=== PATIENT | male | born 1965 | race Caucasian/White ===

== ENCOUNTER → 2016-10-12 | Outpatient (CLI) | payer OTHER ==
[~2016-10-12] MED LIST: /ESOM40CA PO; ADV100INH INH; ADVAIR INH; ALBU17IN2 INH; ATOR1TAB21 PO; AUGM875T27 PO; CHLO125TA PO; COLA100C2 OR; COMBAER6 INH; CORE6.25 PO; FISH1000 PO; FLECTOR1.3 TOP; LEVA31IN INH; LISI20TA5 PO; MULTCAP11 PO; NICO7DIS4 TD; PRED20TA PO; PRIL20CA PO; PROA1AER INH; TUDO400A IN; VIBR100C PO; XOPE1.252 INH; nasonex; oxygen
--- NOTE | 2016-10-12 15:29 | REP ---
Chest two views HISTORY: Shortness of breath Comparison: 07/30/2014 The lungs are clear. The heart is normal in size. The pulmonary vasculature is normal in appearance. The bony structure is intact. IMPRESSION: No acute disease. Signed by Max Santo MD 10/12/2016 03:20 P
== END ==
LOC: M LRY 15:00
PROVIDERS: ATTEND Nurse Practitioner Family
DX: R06.02 Shortness of breath (principal)

== ENCOUNTER → 2017-03-19 | Outpatient (REF) | payer OTHER ==
[~2017-03-19] MED LIST changes: -AUGM875T27 PO; +AUGM875T28 PO; +BREO1INH3 INH; +IBUP80TA PO; +INCR1INH IN; -PROA1AER INH; +PROAAER10 INH; +ZOFR4TAB3 PO
[2017-03-19 18:43] LABS: MEAN CORPUSCULAR HEMOGLOBIN 30.5 pg (27.0-33.0); MEAN CORPUSCULAR VOLUME 89.8 fl (80.0-96.0); RED CELL DISTRIBUTION WIDTH 12.9 % (11.5-14.5); WHITE BLOOD COUNT 9.5 K/mm3 (4.0-10.0)
[2017-03-19 18:56] LABS: ALBUMIN 4.1 GM/DL (3.2-5.2); ALBUMIN/GLOBULIN RATIO 1.52 (1.00-1.93); ALKALINE PHOSPHATASE 100 U/L (45-117); ALT/SGPT 67 U/L (12-78); ANION GAP 5 MEQ/L (8-16); AST/SGOT 24 U/L (15-37); BILIRUBIN,TOTAL 0.4 MG/DL (0.2-1.0); BLOOD UREA NITROGEN 11 MG/DL (7-18); CALCIUM LEVEL 9.2 MG/DL (8.5-10.1); CARBON DIOXIDE LEVEL 35 MEQ/L (21-32); CHLORIDE LEVEL 103 MEQ/L (98-107); CHOLESTEROL LEVEL 130 MG/DL (<200); CREATININE FOR GFR 0.93 MG/DL (0.70-1.30); GLOMERULAR FILTRATION RATE > 60.0 (>56); GLUCOSE, FASTING 125 MG/DL (70-105); SODIUM LEVEL 143 MEQ/L (136-145); TOTAL PROTEIN 6.8 GM/DL (6.4-8.2); TRIGLYCERIDES LEVEL 311 MG/DL (<150)
== END ==
LOC: M SFHCLERA 09:40
PROVIDERS: ATTEND Physician Assistant
DX: I10 Essential (primary) hypertension (principal); R73.09 Other abnormal glucose; E78.2 Mixed hyperlipidemia

== ENCOUNTER 2017-05-30 16:04 | Emergency (ER) | payer OTHER ==
[~2017-05-30] VITALS: Ht 182.9 cm; Wt 122.7 kg
[~2017-05-30 16:04] MED LIST changes: -BREO1INH3 INH; -IBUP80TA PO; -INCR1INH IN; -ZOFR4TAB3 PO
[2017-05-30] MEDS ORDERED: BREO1INH3 INH (16:16)
[2017-05-30] MEDS ORDERED: INCR1INH IN (16:16)
--- NOTE | 2017-05-30 17:06 | REP ---
CT Head without contrast HISTORY: Trauma COMPARISON: None There is no intraparenchymal hemorrhage, acute infarct, mass or midline shift. The ventricular system is normal in appearance. There is no extra cerebral collection. There is no fracture. The visualized sinuses are clear. A subgaleal hematoma is present overlying the right frontal bone. Small amount of subcutaneous air is present. IMPRESSION: There is no intracranial lesion. Signed by Max Santo MD 05/30/2017 04:57 P
[2017-05-30] MEDS ORDERED: ACETAMINOPHEN 325 MG TAB PO ONE (17:15)
[2017-05-30] MEDS ORDERED: ONDANSETRON 4 MG ORAL DISINTEGRATING TAB (S0181) PO ONE (17:15)
[2017-05-30] MEDS ORDERED: IBUPROFEN 800 MG TAB PO ONE (17:15)
[2017-05-30] MEDS ORDERED: IBUP80TA PO (17:22)
[2017-05-30] MEDS ORDERED: ZOFR4TAB3 PO (17:22)
[2017-05-30 17:29] VITALS: BP 153/95
== END 2017-05-30 17:30 | disposition home or self-care (01) ==
LOC: M ED 16:04
DX: S00.83XA Contusion of other part of head, initial encounter (principal); S09.90XA Unspecified injury of head, initial encounter; W22.8XXA Striking against or struck by other objects, initial encounter; Y92.59 Other trade areas as the place of occurrence of the external cause; Y93.H3 Activity, building and construction; Y99.0 Civilian activity done for income or pay; Z79.51 Long term (current) use of inhaled steroids; Z79.899 Other long term (current) drug therapy; Z87.891 Personal history of nicotine dependence

== ENCOUNTER → 2017-09-17 | Outpatient (CLI) | payer OTHER | LOC: M LRY 12:06 | DX: R06.02 Shortness of breath (principal) | CPT/HCPCS: 71046 ==

== ENCOUNTER → 2017-09-19 | Outpatient (REF) | payer OTHER ==
[2017-09-19 18:33] LABS: ALBUMIN 4.4 GM/DL (3.2-5.2); ALBUMIN/GLOBULIN RATIO 1.33 (1.00-1.93); ALKALINE PHOSPHATASE 116 U/L (45-117); ALT/SGPT 51 U/L (12-78); ANION GAP 6 MEQ/L (8-16); AST/SGOT 10 U/L (7-37); BILIRUBIN,TOTAL 0.3 MG/DL (0.2-1.0); BLOOD UREA NITROGEN 19 MG/DL (7-18); CALCIUM LEVEL 9.4 MG/DL (8.5-10.1); CARBON DIOXIDE LEVEL 31 MEQ/L (21-32); CHLORIDE LEVEL 103 MEQ/L (98-107); CHOLESTEROL LEVEL 157 MG/DL (<200); CHOLESTEROL RISK RATIO 4.617 (<5); CREATININE FOR GFR 0.95 MG/DL (0.70-1.30); GLOMERULAR FILTRATION RATE > 60.0 (>56); GLUCOSE, FASTING 171 MG/DL (70-100); HDL CHOLESTEROL 34 MG/DL (>40); LDL CHOLESTEROL 76.2 MG/DL (<100); NON-HDL-C 123 MG/DL; POTASSIUM SERUM 4.6 MEQ/L (3.5-5.1); SODIUM LEVEL 140 MEQ/L (136-145); TOTAL PROTEIN 7.7 GM/DL (6.4-8.2); TRIGLYCERIDES LEVEL 234 MG/DL (<150)
[2017-09-19 19:57] LABS: ESTIMATED AVERAGE GLUCOSE 140 MG/DL (60-110); HEMOGLOBIN A1c 6.5 %
== END ==
LOC: M SFHCLERA 09:53
DX: I10 Essential (primary) hypertension (principal); R73.09 Other abnormal glucose; E78.2 Mixed hyperlipidemia
CPT/HCPCS: 83036

== ENCOUNTER → 2017-12-01 | Outpatient (CLI) | payer OTHER | LOC: M PAIN 11:15 | DX: M46.92 Unspecified inflammatory spondylopathy, cervical region (principal); G44.309 Post-traumatic headache, unspecified, not intractable; M79.1 Myalgia; J44.9 Chronic obstructive pulmonary disease, unspecified; K21.9 Gastro-esophageal reflux disease without esophagitis; I10 Essential (primary) hypertension; E78.5 Hyperlipidemia, unspecified; M19.011 Primary osteoarthritis, right shoulder; M19.012 Primary osteoarthritis, left shoulder; J30.2 Other seasonal allergic rhinitis; Z79.51 Long term (current) use of inhaled steroids; Z79.899 Other long term (current) drug therapy; Z87.891 Personal history of nicotine dependence | CPT/HCPCS: G0463 ==

== ENCOUNTER → 2018-01-12 | Outpatient (CLI) | payer OTHER | LOC: M LRY 14:35 | DX: R10.9 Unspecified abdominal pain (principal) | CPT/HCPCS: 74021 ==

== ENCOUNTER → 2018-01-24 | Outpatient (CLI) | payer OTHER | LOC: M PAIN 11:45 | DX: M46.92 Unspecified inflammatory spondylopathy, cervical region (principal); F07.81 Postconcussional syndrome; M79.1 Myalgia; G44.309 Post-traumatic headache, unspecified, not intractable; M54.12 Radiculopathy, cervical region; J44.9 Chronic obstructive pulmonary disease, unspecified; I10 Essential (primary) hypertension; K21.9 Gastro-esophageal reflux disease without esophagitis; E78.5 Hyperlipidemia, unspecified; Z79.899 Other long term (current) drug therapy; Z87.891 Personal history of nicotine dependence; J30.2 Other seasonal allergic rhinitis | CPT/HCPCS: G0463 ==

== ENCOUNTER → 2018-02-27 | Outpatient (CLI) | payer OTHER | LOC: M PAIN 10:30 | DX: M46.92 Unspecified inflammatory spondylopathy, cervical region (principal); F07.81 Postconcussional syndrome; M79.1 Myalgia; G44.309 Post-traumatic headache, unspecified, not intractable; M54.12 Radiculopathy, cervical region; J44.9 Chronic obstructive pulmonary disease, unspecified; K21.9 Gastro-esophageal reflux disease without esophagitis; I10 Essential (primary) hypertension; E78.5 Hyperlipidemia, unspecified; J30.2 Other seasonal allergic rhinitis; M19.011 Primary osteoarthritis, right shoulder; M19.012 Primary osteoarthritis, left shoulder; Z79.51 Long term (current) use of inhaled steroids; Z87.891 Personal history of nicotine dependence; Z79.899 Other long term (current) drug therapy | CPT/HCPCS: G0463 ==

== ENCOUNTER → 2018-02-28 | Outpatient (REF) | payer OTHER ==
[2018-02-28 12:00] LABS: ESTIMATED AVERAGE GLUCOSE 217 MG/DL (60-110); HEMOGLOBIN A1c 9.2 %
[2018-02-28 13:15] LABS: ALKALINE PHOSPHATASE 202 U/L (45-117); AST/SGOT 47 U/L (7-37); BILIRUBIN,TOTAL 0.5 MG/DL (0.2-1.0); BLOOD UREA NITROGEN 12 MG/DL (7-18); CALCIUM LEVEL 9.3 MG/DL (8.5-10.1); CARBON DIOXIDE LEVEL 31 MEQ/L (21-32); CHLORIDE LEVEL 96 MEQ/L (98-107); CHOLESTEROL LEVEL 250 MG/DL (<200); CREATININE FOR GFR 1.01 MG/DL (0.70-1.30); GLUCOSE, FASTING 334 MG/DL (70-100); HDL CHOLESTEROL 26 MG/DL (>40); POTASSIUM SERUM 4.9 MEQ/L (3.5-5.1); SODIUM LEVEL 135 MEQ/L (136-145); TOTAL PROTEIN 7.7 GM/DL (6.4-8.2); TRIGLYCERIDES LEVEL 2066 MG/DL (<150)
[2018-02-28 13:27] LABS: ALT/SGPT 115 U/L (12-78)
[2018-02-28 13:29] LABS: ANION GAP 8 MEQ/L (8-16)
[2018-02-28 13:31] LABS: ALBUMIN/GLOBULIN RATIO 1.18 (1.00-1.93)
== END ==
LOC: M SFHCLERA 09:25
DX: E78.2 Mixed hyperlipidemia (principal); R73.09 Other abnormal glucose

== ENCOUNTER → 2018-04-02 | Outpatient (CLI) | payer OTHER | LOC: M PAIN 11:00 | DX: M46.92 Unspecified inflammatory spondylopathy, cervical region (principal); F07.81 Postconcussional syndrome; M79.1 Myalgia; G44.309 Post-traumatic headache, unspecified, not intractable; M54.12 Radiculopathy, cervical region; J45.909 Unspecified asthma, uncomplicated; J44.9 Chronic obstructive pulmonary disease, unspecified; K21.9 Gastro-esophageal reflux disease without esophagitis; I10 Essential (primary) hypertension; E78.5 Hyperlipidemia, unspecified; M19.011 Primary osteoarthritis, right shoulder; M19.012 Primary osteoarthritis, left shoulder; F17.220 Nicotine dependence, chewing tobacco, uncomplicated; J31.0 Chronic rhinitis; Z99.81 Dependence on supplemental oxygen; Z79.899 Other long term (current) drug therapy | CPT/HCPCS: G0463 ==

== ENCOUNTER → 2018-04-26 | Outpatient (CLI) | payer OTHER | LOC: M PAIN 15:15 | DX: M54.2 Cervicalgia (principal); M47.812 Spondylosis without myelopathy or radiculopathy, cervical region; M79.1 Myalgia; J44.9 Chronic obstructive pulmonary disease, unspecified; K21.9 Gastro-esophageal reflux disease without esophagitis; E11.65 Type 2 diabetes mellitus with hyperglycemia; I10 Essential (primary) hypertension; E78.5 Hyperlipidemia, unspecified; M19.011 Primary osteoarthritis, right shoulder; M19.012 Primary osteoarthritis, left shoulder; Z79.51 Long term (current) use of inhaled steroids; Z79.84 Long term (current) use of oral hypoglycemic drugs; Z79.899 Other long term (current) drug therapy; Z87.891 Personal history of nicotine dependence | CPT/HCPCS: G0463 ==

== ENCOUNTER 2018-06-04 09:09 | Day surgery (SDC) | payer OTHER ==
[2018-06-04] MEDS: NS 1,000 ML IV (06:00)
[2018-06-04] MEDS ORDERED: LIDOCAINE 2% INJ 100 MG/5 ML SDV (FOR ANES.) As Ordered (11:37)
[2018-06-04] MEDS ORDERED: PROPOFOL 500 MG/50 ML VIAL As Ordered (11:37)
== END 2018-06-04 11:49 | disposition home or self-care (01) ==
LOC: M OPP 11:49
DX: Z12.11 Encounter for screening for malignant neoplasm of colon (principal); K57.30 Diverticulosis of large intestine without perforation or abscess without bleeding; K64.8 Other hemorrhoids; I10 Essential (primary) hypertension; E78.5 Hyperlipidemia, unspecified; E11.9 Type 2 diabetes mellitus without complications; Z87.19 Personal history of other diseases of the digestive system; K21.9 Gastro-esophageal reflux disease without esophagitis; R12 Heartburn; Z87.828 Personal history of other (healed) physical injury and trauma; G43.909 Migraine, unspecified, not intractable, without status migrainosus; J45.909 Unspecified asthma, uncomplicated; J44.9 Chronic obstructive pulmonary disease, unspecified; G47.30 Sleep apnea, unspecified; Z87.891 Personal history of nicotine dependence; Z79.84 Long term (current) use of oral hypoglycemic drugs; Z79.899 Other long term (current) drug therapy; Z80.9 Family history of malignant neoplasm, unspecified
CPT/HCPCS: G0121

== ENCOUNTER → 2018-06-14 | Outpatient (CLI) | payer OTHER | LOC: M PAIN 15:15 | DX: F07.81 Postconcussional syndrome (principal); M54.12 Radiculopathy, cervical region; M46.92 Unspecified inflammatory spondylopathy, cervical region; M79.18 Myalgia, other site; E11.9 Type 2 diabetes mellitus without complications; J44.9 Chronic obstructive pulmonary disease, unspecified; K21.9 Gastro-esophageal reflux disease without esophagitis; I10 Essential (primary) hypertension; E78.5 Hyperlipidemia, unspecified; M19.011 Primary osteoarthritis, right shoulder; M19.012 Primary osteoarthritis, left shoulder; Z79.84 Long term (current) use of oral hypoglycemic drugs; Z79.51 Long term (current) use of inhaled steroids; Z79.899 Other long term (current) drug therapy; Z87.891 Personal history of nicotine dependence | CPT/HCPCS: G0463 ==

== ENCOUNTER → 2018-06-20 | Outpatient (REF) | payer OTHER ==
[2018-06-20 11:58] LABS: ALBUMIN/GLOBULIN RATIO 1.48 (1.00-1.93); ALKALINE PHOSPHATASE 115 U/L (45-117); ALT/SGPT 61 U/L (12-78); ANION GAP 7 MEQ/L (8-16); AST/SGOT 23 U/L (7-37); BILIRUBIN,TOTAL 0.7 MG/DL (0.2-1.0); BLOOD UREA NITROGEN 20 MG/DL (7-18); CALCIUM LEVEL 9.3 MG/DL (8.5-10.1); CARBON DIOXIDE LEVEL 29 MEQ/L (21-32); CHLORIDE LEVEL 102 MEQ/L (98-107); CHOLESTEROL LEVEL 136 MG/DL (<200); CHOLESTEROL RISK RATIO 4.857 (<5); CREATININE FOR GFR 1.01 MG/DL (0.70-1.30); GLOMERULAR FILTRATION RATE > 60.0 (>56); GLUCOSE, FASTING 165 MG/DL (70-100); HDL CHOLESTEROL 28 MG/DL (>40); LDL CHOLESTEROL 43 MG/DL (<100); MAGNESIUM LEVEL 1.9 MG/DL (1.8-2.4); NON-HDL-C 108 MG/DL; POTASSIUM SERUM 4.6 MEQ/L (3.5-5.1); SODIUM LEVEL 138 MEQ/L (136-145); TOTAL PROTEIN 6.7 GM/DL (6.4-8.2); TRIGLYCERIDES LEVEL 326 MG/DL (<150)
[2018-06-20 12:03] LABS: TOTAL 25(OH) VITAMIN D 21.4 NG/ML (30.0-100.0)
[2018-06-20 12:41] LABS: CREATININE, URINE > 400.0 MG/DL; MALB URINE SIEMENS 72.7 MG/L; MAU/CREAT RATIO 18.2 MCG/MG (0.0-30.0)
[2018-06-20 13:06] LABS: ESTIMATED AVERAGE GLUCOSE 160 MG/DL (60-110); HEMOGLOBIN A1c 7.2 %
[2018-06-23 15:23] LABS: VITAMIN B2 (RIBOFLAVIN) 252 ug/L (137-370)
== END ==
LOC: M SFHCLERA 07:27
DX: E11.65 Type 2 diabetes mellitus with hyperglycemia (principal); E78.2 Mixed hyperlipidemia; F07.81 Postconcussional syndrome; G44.309 Post-traumatic headache, unspecified, not intractable; E61.2 Magnesium deficiency

== ENCOUNTER → 2018-07-12 | Outpatient (CLI) | payer OTHER ==
[~2018-07-12] MED LIST changes: -/ESOM40CA PO; -ADV100INH INH; -ADVAIR INH; -ALBU17IN2 INH; -ATOR1TAB21 PO; -AUGM875T28 PO; +BUPIVACAINE HCL 0.25% 30 ML VIAL As Ordered; -CHLO125TA PO; -COLA100C2 OR; -COMBAER6 INH; -CORE6.25 PO; -FISH1000 PO; -FLECTOR1.3 TOP; -LEVA31IN INH; -LISI20TA5 PO; -MULTCAP11 PO; -NICO7DIS4 TD; -PRED20TA PO; -PRIL20CA PO; -PROAAER10 INH; +TRIAMCINOLONE ACETONIDE SUSP 40 MG/ML VIAL (J3301) As Ordered; -TUDO400A IN; -VIBR100C PO; -XOPE1.252 INH; +diazePAM 5 MG TAB As Ordered; -nasonex; +oxyCODONE 5MG TAB As Ordered; -oxygen
== END ==
LOC: M PAIN 08:30
DX: M79.18 Myalgia, other site (principal); M54.2 Cervicalgia; J44.9 Chronic obstructive pulmonary disease, unspecified; K21.9 Gastro-esophageal reflux disease without esophagitis; I10 Essential (primary) hypertension; E11.9 Type 2 diabetes mellitus without complications; E78.5 Hyperlipidemia, unspecified; M19.011 Primary osteoarthritis, right shoulder; M19.012 Primary osteoarthritis, left shoulder; Z79.51 Long term (current) use of inhaled steroids; Z79.899 Other long term (current) drug therapy; Z87.891 Personal history of nicotine dependence
CPT/HCPCS: J3301

== ENCOUNTER → 2018-07-16 | Outpatient (CLI) | payer OTHER | LOC: M PAIN 08:30 | DX: M79.18 Myalgia, other site (principal); M54.2 Cervicalgia; J44.9 Chronic obstructive pulmonary disease, unspecified; E11.9 Type 2 diabetes mellitus without complications; K21.9 Gastro-esophageal reflux disease without esophagitis; I10 Essential (primary) hypertension; E78.5 Hyperlipidemia, unspecified; M19.011 Primary osteoarthritis, right shoulder; M19.012 Primary osteoarthritis, left shoulder; Z79.84 Long term (current) use of oral hypoglycemic drugs; Z79.51 Long term (current) use of inhaled steroids; Z79.899 Other long term (current) drug therapy; Z87.891 Personal history of nicotine dependence | CPT/HCPCS: G0463 ==

== ENCOUNTER → 2018-08-16 | Outpatient (CLI) | payer OTHER ==
[~2018-08-16] MED LIST changes: +/ESOM40CA PO; +ADV100INH INH; +ADVAIR INH; +ALBU17IN2 INH; +ATOR1TAB21 PO; +AUGM875T28 PO; +BREO1INH3 INH; -BUPIVACAINE HCL 0.25% 30 ML VIAL As Ordered; +CARV6.25 PO; +CHLO125TA PO; +COLA100C2 OR; +COMBAER6 INH; +CORE6.25 PO; +FISH1000 PO; +FLECTOR1.3 TOP; +IBUP80TA PO; +INCR1INH IN; +LEVA31IN INH; +LISI-538 PO; +LISI20TA5 PO; +METF500T13 PO; +MULT1TAB10 PO; +MULTCAP11 PO; +NICO7DIS4 TD; +OMEP40CA2 PO; +PRED20TA PO; +PRIL20CA PO; +PROAAER10 INH; +RANI150T PO; -TRIAMCINOLONE ACETONIDE SUSP 40 MG/ML VIAL (J3301) As Ordered; +TUDO400A IN; +VIBR100C PO; +XOPE1.252 INH; +ZOFR4TAB14 PO; -diazePAM 5 MG TAB As Ordered; +nasonex; -oxyCODONE 5MG TAB As Ordered; +oxygen
--- NOTE | 2018-09-01 23:25 | ECWPNPC ---
PATIENT NAME: RUBY LOPEZ : 1965 GENDER: MALE VISIT DATE: 08/16/2018 DISCHARGE DATE: 08/16/18 1237 VISIT LOCKED DATE TIME: PHYSICIAN: ALMA DIXON MD RESOURCE: ALMA DIXON MD REASON FOR APPOINTMENT 1. W/C POST PROC NECK HISTORY OF PRESENT ILLNESS HISTORY OF PRESENT ILLNESS: PAIN THE PATIENT DESCRIBES THE PAIN... 53 YEAR OLD MALE PATIENT WITH A HISTORY OF CHRONIC NECK PAIN. THE PATIENT DESCRIBES THE PAIN ACHING, BURNING, SORE, TENDER, SHARP, STABBING, SHOOTING, AND CONTINUOUS WITH A PAIN SCORE OF 7-10/10 DEPENDING ON PHYSICAL ACTIVITY. 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 THE PATIENT WAS HERE FOR TRIGGER POINT INJECTION ON 07/12/2018 AND REPORTS HAVING SIGNIFICANT RELIEF FOR OVER A MONTH AND SAYS THAT THE PAIN HAS RECENTLY STARTED TO RETURN. THE PATIENT SAYS THAT THE PAIN STARTS IN HIS NECK AND RADIATES DOWN INTO HIS ARMS AND HANDS CAUSING HIM TO HAVE DIFFICULTY RAISING HIS ARMS. THE PATIENT STATES THAT HE HAS DIFFICULTY DOING DAILY ACTIVITIES SUCH LIFTING, WALKING HIS DOG, AND GETTING AROUND DUE TO THIS PAIN. THE PATIENT IS CURRENTLY USING IBUPROFEN AND TIZANIDINE TO AID IN PAIN RELIEF. THE PATIENT SAYS THE IBUPROFEN HAS NOT BEEN HELPING MUCH, BUT THE TIZANIDINE HELPS WITH SEVERE SPASMS. PATIENT DENIES UNEXPLAINABLE WEIGHT LOSS, FEVER, CHILLS, NEW CHANGES ON HIS URINARY OR BOWEL CONTROL. FALL RISK SCREENING: SCREENING :NO FALLS IN THE PAST YEAR CURRENT MEDICATIONS TAKING CARVEDILOL 6.25MG TABLET 1 TABLET ORALLY TWICE A DAY TAKING LISINOPRIL 40 MG TABLET 1 TABLET ORALLY ONCE A DAY TAKING CHLORTHALIDONE 12.5 12.5MG TABLET 1 TAB ORAL TWICE A DAY (CARDIOLOGY) TAKING ATORVASTATIN CALCIUM 40 MG TABLET 1 TABLET ORALLY ONCE A DAY TAKING COMBIVENT RESPIMAT 20-100 MCG/ACT AEROSOL 1 PUFF INHALATION FOUR TIMES DAILY (PULM) TAKING GLUCOPHAGE XR 500 MG TABLET EXTENDED RELEASE 24 HOUR 1 TABLET WITH FOOD ORALLY THREE TIMES A DAY TAKING BREO ELLIPTA 100-25 MCG/INH AEROSOL POWDER BREATH ACTIVATED 1 PUFF INHALATION ONCE A DAY TAKING INCRUSE ELLIPTA 62.5 MCG/INH AEROSOL POWDER BREATH ACTIVATED 1 PUFF INHALATION ONCE A DAY TAKING OXYGEN VIA CPAP NASAL CANNULA NIGHT, NOTES: WEARS AT 2 L TAKING IBUPROFEN 800 MG TABLET 1 TABLET WITH FOOD OR MILK NEEDED ORALLY (MDD 3) FOR PAIN EVERY 6 HOURS NEEDED TAKING OMEPRAZOLE 40MG CAPSULE DELAYED RELEASE 1 CAPSULE ORALLY ONCE A DAY FOR REFLUX TAKING RANITIDINE & DIET MANAGE PROD 150 MG MISCELLANEOUS ORALLY DAILY TAKING MULTIVITAMIN - TABLET CHEWABLE ORALLY DAILY TAKING TIZANIDINE HCL 4 MG TABLET 1 TABLET NEEDED ORALLY FOR SPASMS AND PAIN BEFORE BEDTIME MAY REPEAT IN 5 HRS MDD2 (WORKERS COMP) UNKNOWN XOPENEX 0.63 MG/3ML NEBULIZATION SOLUTION TAKE 3 ML NEB INHALATION 4-5 TIMES DAILY NEEDED FOR COUGH/WHEEZING, NOTES: NONE RECENTLY MEDICATION LIST REVIEWED AND RECONCILED WITH THE PATIENT PAST MEDICAL HISTORY ASTHMA/COPD ESOPHAGEAL REFLUX HTN HYPERLIPIDEMIA CHEST WALL PAIN SHOULDER ARTHRITIS BILATERAL TOBACCO USE (CHEW) CHRONIC RHINITIS RIGHT EYE CORNEAL INJURY DIABETES TYPE II NECK AND SHOULDER PAIN ALLERGIES SEASONAL: NASAL CONGESTION, RED WATERY EYES: ALLERGY SURGICAL HISTORY R KNEE SURGERY COLONOSCOPY (DR. PEREZ - REPEAT 2019) 08/03/2010 RIGHT KNEE ACL 08/20/15 COLONOSCOPY (DR. CLEMENT - REPEAT 2027) 06/04/2018 FAMILY HISTORY FATHER: 63 YRS, STROKE, HTN, DIAGNOSED WITH HYPERTENSION, STROKE MOTHER: ALIVE 75 YRS SIBLINGS: ALIVE 42,50,3 YRS, PNEUMONIA, HTN, DIAGNOSED WITH HYPERTENSION, HEART DISEASE PATERNAL GRAND FATHER: [place], DIAGNOSED WITH HEART DISEASE SOCIAL HISTORY GENERAL: TOBACCO USE ARE YOU A:FORMER SMOKER HOW LONG HAS IT BEEN SINCE YOU LAST SMOKED?1-5 YEARS SMOKING CESSATION INFORMATION GIVEN05/26/2016 LUNG CANCER SCREENING SMOKING STATUS:FORMER SMOKER BMI CARE GOAL FOLLOW-UP ABOVE NORMAL BMI FOLLOW-UPDIETARY MANAGEMENT EDUCATION, GUIDANCE, AND COUNSELING ALCOHOL SCREENING DID YOU HAVE A DRINK CONTAINING ALCOHOL IN THE PAST YEAR?YES POINTS0 INTERPRETATIONNEGATIVE RECREATIONAL DRUG USE DENIES. CAFFEINE 2-5/DAY (COFFEE). SEXUAL HX HAD SEX IN THE LAST 12 MONTHS (VAGINAL, ORAL, OR ANAL)?YES WITHWOMEN ONLY HIV / HEP-C SCREENING HIV TEST OFFERED TO PATIENT:YES DATE OFFERED:09/17/2017 TEST ACCEPTED:NO HEP-C TEST OFFERED TO PATIENT:YES DATE OFFERED:09/17/2017 REASON:PATIENT DECLINED TEST ACCEPTED:NO REASON:PATIENT DECLINED BAPTISM [id number] NONE LANGUAGE GREEK. EDUCATION HS. LEARNING BARRIERS / SPECIAL NEEDS CHANGE FROM LAST VISIT?NO BARRIERS TO LEARNING?NO HEARING IMPAIRED?YES VISION IMPAIRED?YES COGNITIVELY IMPAIRED?NO : [place] BILATERALLY. 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 DIET: TRYING LOW SODIUM, BUT DOES ADD SALT TO FOOD SOME. EXERCISE: WALKS. MARITAL STATUS: . PAIN CLINIC PFS, CLERGY, PUBLIC HEALTH REFERRALS HAS THE PATIENT BEEN EDUCATED REGARDING HIS/HER PLAN OF CARE?YES HAS THE PATIENT BEEN EDUCATED REGARDING PAIN, THE RISK FOR PAIN, THE IMPORTANCE OF EFFECTIVE PAIN MANAGEMENT, AND THE PAIN ASSESSMENT PROCESS?YES ADVANCE DIRECTIVE ADVANCE DIRECTIVE DISCUSSED WITH PATIENT:YES HCP - DOROTA PANIAGUA 07/16/18 BV REVIEWED WITH PATIENT 06/14/18 1440 JSREVIEWED WITH PATIENT 07/16/18 0883 BV. HOSPITALIZATION/MAJOR DIAGNOSTIC PROCEDURE RECTAL BLEEDING - COLONOSCOPY 07/2010 LOWER LEG CELLULITIS 2013 COPD EXACERBATION 07/2014 REVIEW OF SYSTEMS REVIEWED BY: PROVIDER: ALMA DIXON MD . CONSTITUTIONAL: ANY CHANGE IN YOUR MEDICAL CONDITION? NO . CHILLS NO . FEVER NO . INFECTION: DO YOU HAVE NEW INFECTIONS? NO . DO YOU HAVE HISTORY OF MRSA? NO . MUSCULOSKELETAL: ANY NEW PATTERNS OF PAIN OR NUMBNESS? NO . GASTROENTEROLOGY: ANY NEW CHANGE IN BOWEL CONTROL? NO . GENITOURINARY: ANY NEW CHANGE IN BLADDER CONTROL? NO . IS THERE A CHANCE YOU COULD BE ? NO . HEMATOLOGY/LYMPH: DO YOU TAKE ANY BLOOD THINNERS? (FOR EXAMPLE- COUMADIN, PLAVIX, AGGRENOX, PLATEL, PRADAXA, OR XARELTO) NO . WHEN WAS YOUR LAST DOSE? DATE: TIME: . NEUROLOGY: HAVE YOU FALLEN IN THE PAST 6 MONTHS? NO . ANY NEW EXTREMITY NUMBNESS OR WEAKNESS? NO . CARDIOLOGY: DO YOU HAVE A PACEMAKER OR DEFIBRILLATOR? NO . RESPIRATORY: HAVE YOU BEEN SICK IN THE PAST WEEK? NO . FEVER NO . FLU LIKE SYMPTOMS? NO . COUGH NO . INTEGUMENTARY: DO YOU HAVE ANY RASHES OR OPEN SORES? NO . ALLERGIC/IMMUNO: ARE YOU ALLERGIC TO SHELLFISH OR IV DYE? NO . ANY NEW ALLERGIES? NO . PSYCHIATRIC: DO YOU HAVE THOUGHTS OF HURTING YOURSELF OR SOMEONE ELSE? NO . ARE YOU ABUSED, NEGLECTED, OR IN AN UNSAFE ENVIRONMENT? NO . ENDOCRINOLOGY: ARE YOU DIABETIC? YES . OTHER: DO YOU NEED ANY PRESCRIPTIONS? NO . IF YES, PLEASE LIST: ____ . ANY NEW PROBLEMS WITH YOUR MEDICATIONS? NO . WHEN DID YOU LAST EAT? ____ . WHEN DID YOU LAST DRINK? ____ . WHAT DID YOU LAST DRINK? ____ . NAME OF PERSON DRIVING YOU HOME? ____ . DO YOU HAVE ANY OTHER QUESTIONS OR CONCERNS NO . VITAL SIGNS WT 256.5 LBS, HT 72.5 IN, BMI 34.31 INDEX, BP 138/81 MM HG, HR 82 /MIN, RR 18 /MIN, TEMP 97.7 F, OXYGEN SAT % 96%, NA INITIALS SC 11:57. EXAMINATION GENERAL EXAMINATION: PATIENT IS ALERT O X 3 AND COOPERATIVE. TENDERNESS IN THE NECK AREA. PATIENT CAN ABDUCT THE UPPER EXTREMITIES TO BELOW THE SHOULDERS. ARMS ARE WEAK AT EXTENSION AND FLEXION. HAND ON LINE CSR IS REDUCED OVER BOTH SIDES. MRI OF THE CERVICAL SPINE DONE ON 11/02/2017 SHOWS STENOSIS AT C5-C6 AND BULGING DISCS AT MULTIPLE LEVELS. ASSESSMENTS CERVICAL DISC DISORDER WITH RADICULOPATHY OF CERVICAL REGION - M50.10 (PRIMARY) MYALGIA, OTHER SITE - M79.18 TREATMENT CERVICAL DISC DISORDER WITH RADICULOPATHY OF CERVICAL REGION CLINICAL NOTES: WE DISCUSSED SEVERAL ISSUES WITH MR. LOPEZ'S PAIN MANAGEMENT CASE. DUE TO THE CERVICAL RADICULOPATHY, I WOULD LIKE TO MOVE FORWARD WITH A CERVICAL EPIDURAL AT THIS TIME. WE DISCUSSED THE BENEFITS, RISKS, AND ALTERNATIVES OF THE INJECTION AND THE PATIENT WOULD LIKE TO PROCEED. I WOULD ALSO LIKE THE PATIENT TO CONTINUE USING TIZANIDINE FOR SPASMS AND PAIN AND I WOULD LIKE HIM TO TRY ANOTHER NSAID IN PLACE OF THE IBUPROFEN, SO I WILL START HIM ON MOBIC. THE PATIENT WILL FOLLOW UP IN 2 MONTHS. INSTRUCTIONS WERE GIVEN, QUESTIONS WERE ANSWERED, PATIENT REPORTS UNDERSTANDING AND AGREES WITH THE PLAN. I, TATO MATHIS, DOCUMENTED THE ABOVE INFORMATION ACTING A SCRIBE FOR DR. DIXON. I HAVE REVIEWED THE ABOVE DOCUMENT, WRITTEN BY TATO GALVEZIBGloria AND I VERIFY THAT IT IS ACCURATE. OTHERS START MOBIC TABLET, 15 MG, 1 TABLET, ORALLY WITH FOOF, ONCE A DAY, 30 DAY(S), 30, REFILLS 1 PROCEDURES PN WORKMANS' COMP OPINION IN YOUR OPINION, WAS THE INCIDENT THAT THE PATIENT DESCRIBED THE COMPETENT MEDICAL CAUSE OF THIS INJURY/ILLNESS? YES ARE THE PATIENT'S COMPLAINTS CONSISTENT WITH HIS/HER HISTORY OF THE INJURY/ILLNESS? YES IS THE PATIENT'S HISTORY OF THE INJURY/ILLNESS CONSISTENT WITH YOUR OBJECTIVE FINDING? YES WHAT IS THE PERCENTAGE OF TEMPORARY IMPAIRMENT? MILD = 25% IS THE PATIENT WORKING? NO DOCTOR ON SITE: ALMA MARCOS MD PROCEDURE CODES FA211 ESTABILISHED [facility]IENT [facility] FACILITY CHARGE G8427 CURRENT MEDS W/DOSAGES DOCUMENTED G8730 PAIN ASSESS POS TOOL F/U PLAN DOC DISPOSITION & COMMUNICATION FOLLOW UP 2 MONTHS ELECTRONICALLY SIGNED BY ALMA DIXON MD, MD ON 09/01/2018 AT 08:44 PM EST DISCLAIMER : THIS IS A VISIT SUMMARY EXTRACTED FROM THE [employer] CHART. IT IS NOT A COPY OF THE [employer] PROGRESS NOTE. FAB
== END ==
LOC: M PAIN 13:30
PROVIDERS: ATTEND Anesthesiology
DX: M50.10 Cervical disc disorder with radiculopathy, unspecified cervical region (principal); M79.18 Myalgia, other site; J44.9 Chronic obstructive pulmonary disease, unspecified; K21.9 Gastro-esophageal reflux disease without esophagitis; I10 Essential (primary) hypertension; E11.9 Type 2 diabetes mellitus without complications; E78.5 Hyperlipidemia, unspecified; M19.011 Primary osteoarthritis, right shoulder; M19.012 Primary osteoarthritis, left shoulder; Z79.51 Long term (current) use of inhaled steroids; Z79.899 Other long term (current) drug therapy; Z87.891 Personal history of nicotine dependence

== ENCOUNTER → 2018-10-17 | Outpatient (CLI) | payer OTHER ==
[~2018-10-17] MED LIST changes: +ISOVUE-M 300 61% 15ML VIAL (Q9967) As Ordered ONE; +LIDOCAINE 1% SDV INJ 30 ML VIAL As Ordered ONE; +diazePAM 5 MG TAB As Ordered ONE; +methylPREDNISolone SUSP 40 MG/ML (DEPO-medrol) VIAL (J1030) As Ordered ONE; +oxyCODONE 5MG TAB As Ordered ONE
--- NOTE | 2018-10-17 13:22 | REP ---
Partial cervical spine series: Two views. History: Cervical epidural injection for pain. 8 seconds of fluoroscopy time is reported. Findings: A sequence of two last image hold fluoroscopically obtained spot radiographs of the cervicothoracic junction document needle position and contrast injection associated with cervical epidural injection procedure. Electronically Signed by Jonathan Haile MD 10/17/2018 05:03 P
--- NOTE | 2018-10-28 00:02 | ECWPNPC ---
PATIENT NAME: RUBY LOPEZ : 1965 GENDER: MALE VISIT DATE: 10/17/2018 DISCHARGE DATE: 10/17/18 1307 VISIT LOCKED DATE TIME: PHYSICIAN: ALMA DIXON MD RESOURCE: ALMA DIXON MD REASON FOR APPOINTMENT 1. VIOLA HISTORY OF PRESENT ILLNESS HISTORY OF PRESENT ILLNESS: PAIN THE PATIENT DESCRIBES THE PAIN... FALL RISK SCREENING: SCREENING : NO FALLS IN THE PAST YEAR. CURRENT MEDICATIONS TAKING CARVEDILOL 6.25MG TABLET 1 TABLET ORALLY TWICE A DAY, NOTES: 10-16-182099 TAKING LISINOPRIL 40 MG TABLET 1 TABLET ORALLY ONCE A DAY, NOTES: 10-16-182099 TAKING CHLORTHALIDONE 12.5 12.5MG TABLET 1 TAB ORAL TWICE A DAY (CARDIOLOGY), NOTES: 10-16-182099 TAKING ATORVASTATIN CALCIUM 40 MG TABLET 1 TABLET ORALLY ONCE A DAY, NOTES: 10-16-182099 TAKING GLUCOPHAGE XR 500 MG TABLET EXTENDED RELEASE 24 HOUR 1 TABLET WITH FOOD ORALLY THREE TIMES A DAY, NOTES: 10-16-182099 TAKING COMBIVENT RESPIMAT 20-100 MCG/ACT AEROSOL 1 PUFF INHALATION FOUR TIMES DAILY (PULM), NOTES: 2099 TAKING BREO ELLIPTA 100-25 MCG/INH AEROSOL POWDER BREATH ACTIVATED 1 PUFF INHALATION ONCE A DAY, NOTES: 10-16-18899 TAKING XOPENEX 0.63 MG/3ML NEBULIZATION SOLUTION TAKE 3 ML NEB INHALATION 4-5 TIMES DAILY NEEDED FOR COUGH/WHEEZING, NOTES: NOT LATELY TAKING OXYGEN VIA CPAP NASAL CANNULA NIGHT, NOTES: WEARS AT 2 EMERITA EVENING TAKING INCRUSE ELLIPTA 62.5 MCG/INH AEROSOL POWDER BREATH ACTIVATED 1 PUFF INHALATION ONCE A DAY, NOTES: 10/16/182099 TAKING OMEPRAZOLE 40MG CAPSULE DELAYED RELEASE 1 CAPSULE ORALLY ONCE A DAY FOR REFLUX, NOTES: 10/16/182099 TAKING RANITIDINE & DIET MANAGE PROD 150 MG MISCELLANEOUS ORALLY DAILY, NOTES: 10/16/182099 TAKING MULTIVITAMIN - TABLET CHEWABLE ORALLY DAILY, NOTES: 10/16/18899 NOT-TAKING MOBIC 15 MG TABLET 1 TABLET ORALLY WITH FOOD ONCE A DAY, NOTES: HAS BEEN OUT FOR 1 WEEK NOT-TAKING DOXYCYCLINE MONOHYDRATE 100 MG CAPSULE 1 CAPSULE ORALLY BID, NOTES: DONE A WEEK AGO NOT-TAKING TESSALON PERLES 100 MG CAPSULE 1 CAPSULE NEEDED ORALLY THREE TIMES A DAY, NOTES: DONE A WEEK AGO NOT-TAKING PREDNISONE 10 MG TABLET 4 TABS QDAY X 3, 3 TAB QDAY X 3, 2 TABS QDAY X 3, 1 TAB QDAY X 3 DAYS ORALLY DIRECTED, NOTES: DONE A WEEK AGO NOT-TAKING TIZANIDINE HCL 4 MG TABLET 1 TABLET NEEDED ORALLY FOR SPASMS AND PAIN BEFORE BEDTIME MAY REPEAT IN 5 HRS MDD2 (WORKERS COMP), NOTES: (HAS AVAILABLE IF NEEDED) MEDICATION LIST REVIEWED AND RECONCILED WITH THE PATIENT PAST MEDICAL HISTORY ASTHMA/COPD ESOPHAGEAL REFLUX HTN HYPERLIPIDEMIA CHEST WALL PAIN SHOULDER ARTHRITIS BILATERAL TOBACCO USE (CHEW) CHRONIC RHINITIS RIGHT EYE CORNEAL INJURY DIABETES TYPE II NECK AND SHOULDER PAIN ALLERGIES N.K.D.A. SURGICAL HISTORY R KNEE SURGERY COLONOSCOPY (DR. PEREZ - REPEAT 2019) 08/03/2010 RIGHT KNEE ACL 08/20/15 COLONOSCOPY (DR. CLEMENT - REPEAT 2027) 06/04/2018 FAMILY HISTORY FATHER: 63 YRS, STROKE, HTN, DIAGNOSED WITH HYPERTENSION, STROKE MOTHER: ALIVE 75 YRS SIBLINGS: ALIVE 42,50,3 YRS, PNEUMONIA, HTN, DIAGNOSED WITH HYPERTENSION, HEART DISEASE PATERNAL GRAND FATHER: [place], DIAGNOSED WITH HEART DISEASE SOCIAL HISTORY GENERAL: TOBACCO USE ARE YOU A:FORMER SMOKER HOW LONG HAS IT BEEN SINCE YOU LAST SMOKED?1-5 YEARS SMOKING CESSATION INFORMATION GIVEN05/26/2016 LUNG CANCER SCREENING SMOKING STATUS:FORMER SMOKER BMI CARE GOAL FOLLOW-UP ABOVE NORMAL BMI FOLLOW-UPDIETARY MANAGEMENT EDUCATION, GUIDANCE, AND COUNSELING ALCOHOL SCREENING DID YOU HAVE A DRINK CONTAINING ALCOHOL IN THE PAST YEAR?YES POINTS0 INTERPRETATIONNEGATIVE RECREATIONAL DRUG USE DENIES. CAFFEINE 2-5/DAY (COFFEE). SEXUAL HX HAD SEX IN THE LAST 12 MONTHS (VAGINAL, ORAL, OR ANAL)?YES WITHWOMEN ONLY HIV / HEP-C SCREENING HIV TEST OFFERED TO PATIENT:YES DATE OFFERED:09/17/2017 TEST ACCEPTED:NO HEP-C TEST OFFERED TO PATIENT:YES DATE OFFERED:09/17/2017 REASON:PATIENT DECLINED TEST ACCEPTED:NO REASON:PATIENT DECLINED BUDDHIST [id number] NONE LANGUAGE LANGUAGES SPOKEN:UPPER SORBIAN EDUCATION HS. LEARNING BARRIERS / SPECIAL NEEDS CHANGE FROM LAST VISIT?NO BARRIERS TO LEARNING?NO HEARING IMPAIRED?YES : [place] BILATERALLY. HAS HEARING AIDES ON ORDER VISION IMPAIRED?YES :CORRECTIVE LENSES COGNITIVELY IMPAIRED?NO READINESS TO LEARN?YES LEARNING PREFERENCES?NO LEARNING CAPABILITIES PRESENT?YES EMOTIONAL BARRIERS?NO SPECIAL DEVICES?NO SHOP GIRL NEEDED?NO DOMESTIC VIOLENCE NONE. DIET: TRYING LOW SODIUM, BUT DOES ADD SALT TO FOOD SOME. EXERCISE: WALKS. MARITAL STATUS: . PAIN CLINIC PFS, CLERGY, PUBLIC HEALTH REFERRALS HAS THE PATIENT BEEN EDUCATED REGARDING HIS/HER PLAN OF CARE?YES HAS THE PATIENT BEEN EDUCATED REGARDING PAIN, THE RISK FOR PAIN, THE IMPORTANCE OF EFFECTIVE PAIN MANAGEMENT, AND THE PAIN ASSESSMENT PROCESS?YES ADVANCE DIRECTIVE ADVANCE DIRECTIVE DISCUSSED WITH PATIENT:YES HCP - DOROTA PANIAGUA 07/16/18 BV REVIEWED WITH PATIENT 06/14/18 1440 JSREVIEWED WITH PATIENT 07/16/18 0851 BVREVIEWED WITH PATIENT 10/17/18 1156 JS. HOSPITALIZATION/MAJOR DIAGNOSTIC PROCEDURE RECTAL BLEEDING - COLONOSCOPY 07/2010 LOWER LEG CELLULITIS 2013 COPD EXACERBATION 07/2014 REVIEW OF SYSTEMS REVIEWED BY: PROVIDER: . CONSTITUTIONAL: ANY CHANGE IN YOUR MEDICAL CONDITION? NO . CHILLS NO . FEVER NO . INFECTION: DO YOU HAVE NEW INFECTIONS? NO . DO YOU HAVE HISTORY OF MRSA? NO . MUSCULOSKELETAL: ANY NEW PATTERNS OF PAIN OR NUMBNESS? YES INCREASED NUMBNESS IN RIGHT ARM . GASTROENTEROLOGY: ANY NEW CHANGE IN BOWEL CONTROL? NO . GENITOURINARY: ANY NEW CHANGE IN BLADDER CONTROL? NO . IS THERE A CHANCE YOU COULD BE ? NO . HEMATOLOGY/LYMPH: DO YOU TAKE ANY BLOOD THINNERS? (FOR EXAMPLE- COUMADIN, PLAVIX, AGGRENOX, PLATEL, PRADAXA, OR XARELTO) NO . WHEN WAS YOUR LAST DOSE? DATE: TIME: . NEUROLOGY: HAVE YOU FALLEN IN THE PAST 12 MONTHS? NO . ANY NEW EXTREMITY NUMBNESS OR WEAKNESS? YES, INCREASED NUMBNESS TO RIGHT ARM . CARDIOLOGY: DO YOU HAVE A PACEMAKER OR DEFIBRILLATOR? NO . RESPIRATORY: HAVE YOU BEEN SICK IN THE PAST WEEK? NO . FEVER NO . FLU LIKE SYMPTOMS? NO . COUGH NO . INTEGUMENTARY: DO YOU HAVE ANY RASHES OR OPEN SORES? NO . ALLERGIC/IMMUNO: ARE YOU ALLERGIC TO IV DYE? NO . ANY NEW ALLERGIES? NO . PSYCHIATRIC: DO YOU HAVE THOUGHTS OF HURTING YOURSELF OR SOMEONE ELSE? NO . ARE YOU ABUSED, NEGLECTED, OR IN AN UNSAFE ENVIRONMENT? NO . ENDOCRINOLOGY: ARE YOU DIABETIC? YES . OTHER: DO YOU NEED ANY PRESCRIPTIONS? NO . IF YES, PLEASE LIST: ____ . ANY NEW PROBLEMS WITH YOUR MEDICATIONS? NO . WHEN DID YOU LAST EAT? ____10/16/18 2030 . WHEN DID YOU LAST DRINK? ____10/17/18 0800 . WHAT DID YOU LAST DRINK? ____WATER . NAME OF PERSON DRIVING YOU HOME? ____WEJULITA O'TAMIKA . DO YOU HAVE ANY OTHER QUESTIONS OR CONCERNS NO . VITAL SIGNS WT 249.8 LBS, HT 72.5 IN, BMI 33.41 INDEX, BP 143/82 MM HG, HR 83 /MIN, RR 18 /MIN, TEMP 98.4 F, OXYGEN SAT % 96%, BLOOD GLUCOSE LEVEL 130 THIS AM, SAFE IN ENV? (Y/N) YES, NA INITIALS [place] 11:13, REVIEWED BY: SHANNA. ASSESSMENTS CERVICAL DISC DISORDER WITH RADICULOPATHY OF CERVICAL REGION - M50.10 (PRIMARY) TREATMENT CERVICAL DISC DISORDER WITH RADICULOPATHY OF CERVICAL REGION [facility] FLUORO GUIDE SPINE INJECTION (PAIN)[id number] PROCEDURES PN CERVICAL EPIDURAL PRE PROCEDURE DIAGNOSIS CERVICAL DISC DISORDER WITH RADICULOPATHY POST PROCEDURE DIAGNOSIS CERVICAL DISC DISORDER WITH RADICULOPATHY PROCEDURE CERVICAL EPIDURAL STEROID INJECTION UNDER FLUOROSCOPIC GUIDANCE SURGEON DR. ALMA DIXON COAL GRADER NONE ANESTHESIA LOCAL PRE PROCEDURE NOTE THE PATIENT HAS A HISTORY OF CHRONIC CERVICAL PAIN. I EVALUATE THE PATIENT AND REVIEWED THE CHART. I WENT OVER THE RISKS, ALTERNATIVES, AND BENEFITS ASSOCIATED WITH THIS PROCEDURE. THE PATIENT WOULD LIKE TO PROCEED AND GIVE CONSENT TO PERFORMED THE PROCEDURE. THE PATIENT DENIES UNEXPLAINABLE WEIGHT LOSS, FEVER, CHILLS, OR NEW CHANGES IN URINARY OR BOWEL CONTROL DESCRIPTION OF PROCEDURE THE PATIENT WAS BROUGHT TO THE PROCEDURE ROOM AND PLACED IN THE PRONE POSITION. THE CERVICOTHORACIC AREA WAS CLEANED WITH BETADINE SOLUTION AND DRAPED ASEPTICALLY. THE PROCEDURE WAS DONE UNDER STERILE CONDITIONS. I CHECKED LATERALITY AND THE LEVEL WHERE THE PROCEDURE WAS GOING TO BE PERFORMED WITH THE PATIENT AND THE SUPPORTING STAFF AT THE MOMENT OF THE TIME OUT IN THE PROCEDURE ROOM. UNDER FLUOROSCOPIC GUIDANCE, THE TARGET WAS SELECTED AT THE INTERLAMINAR LEVEL OF C7-T1. LIDOCAINE WAS USED TO NUMB THE SKIN AND THE SUBCUTANEOUS TISSUE BELOW IT. EPIDURAL TUOHY NEEDLE 17-GAUGE WAS ADVANCED UNDER FLUOROSCOPIC GUIDANCE AND FOLLOWING PATIENT FEEDBACK UNTIL THE EPIDURAL SPACE WAS REACHED 6 CM DEEP INTO THE SKIN BY THE LOSS OF RESISTANCE TECHNIQUE. ISOVUE M DYE 30%, 0.25 ML, WAS INJECTED SHOWING ADEQUATE SPREAD OF THE DYE. THEN, A SOLUTION OF 3 ML OF NORMAL SALINE WITH DEPO-MEDROL 60 MG WAS INJECTED SLOWLY FOLLOWING PATIENT FEEDBACK. THERE WAS NO EVIDENCE OF BLOOD, PARESTHESIA OR CEREBROSPINAL FLUID DURING THE PROCEDURE. THE PATIENT WAS SENT TO THE RECOVERY ROOM. THE PATIENT WAS MOVING THE EXTREMITIES AND DOING WELL. THERE WAS NO COMPLICATION DURING THE PROCEDURE. FLUOROSCOPY TIME WAS 8 SECONDS POST PROCEDURE NOTE THE PATIENT WILL BE SEEN IN A FOLLOW UP IN THE NEXT FEW WEEKS. INSTRUCTIONS WERE GIVEN, QUESTIONS WERE ANSWERED, AND THE PATIENT EXPRESSED UNDERSTANDING AND AGREES WITH THE PLAN. I, TATO MATHIS, DOCUMENTED THE ABOVE INFORMATION ACTING A SCRIBE FOR DR. DIXON. I HAVE REVIEWED THE ABOVE DOCUMENT, WRITTEN BY TATO GALVEZIBGloria AND I VERIFY THAT IT IS ACCURATE. PN WORKMANS' COMP OPINION IN YOUR OPINION, WAS THE INCIDENT THAT THE PATIENT DESCRIBED THE COMPETENT MEDICAL CAUSE OF THIS INJURY/ILLNESS? YES ARE THE PATIENT'S COMPLAINTS CONSISTENT WITH HIS/HER HISTORY OF THE INJURY/ILLNESS? YES IS THE PATIENT'S HISTORY OF THE INJURY/ILLNESS CONSISTENT WITH YOUR OBJECTIVE FINDING? YES WHAT IS THE PERCENTAGE OF TEMPORARY IMPAIRMENT? MODERATE TO MARKED = 66.7% IS THE PATIENT WORKING? NO DOCTOR ON SITE: ALMA MARCOS MD PROCEDURE CODES 6045F RADXPS IN END [id number] PXD [id number] CERVICAL/THORACIC W/ IMAGING DISPOSITION & COMMUNICATION FOLLOW UP 3 WEEKS ELECTRONICALLY SIGNED BY ALMA DIXON MD, MD ON 10/27/2018 AT 07:54 PM EDT DISCLAIMER : THIS IS A VISIT SUMMARY EXTRACTED FROM THE [employer] CHART. IT IS NOT A COPY OF THE [employer] PROGRESS NOTE. MTDD
== END ==
LOC: M PAIN 11:15
PROVIDERS: ATTEND Anesthesiology
DX: G89.29 Other chronic pain (principal); M50.10 Cervical disc disorder with radiculopathy, unspecified cervical region; J44.9 Chronic obstructive pulmonary disease, unspecified; K21.9 Gastro-esophageal reflux disease without esophagitis; E11.9 Type 2 diabetes mellitus without complications; I10 Essential (primary) hypertension; E78.5 Hyperlipidemia, unspecified; M19.011 Primary osteoarthritis, right shoulder; M19.012 Primary osteoarthritis, left shoulder; Z79.84 Long term (current) use of oral hypoglycemic drugs; Z79.51 Long term (current) use of inhaled steroids; Z79.899 Other long term (current) drug therapy; Z87.891 Personal history of nicotine dependence
CPT/HCPCS: 62321; J1030; Q9967

== ENCOUNTER → 2018-12-03 | Outpatient (CLI) | payer OTHER ==
[~2018-12-03] MED LIST changes: -/ESOM40CA PO; -ISOVUE-M 300 61% 15ML VIAL (Q9967) As Ordered ONE; +LEVA0.3131 INH; -LEVA31IN INH; -LIDOCAINE 1% SDV INJ 30 ML VIAL As Ordered ONE; +NEXI1CAP3 PO; -diazePAM 5 MG TAB As Ordered ONE; -methylPREDNISolone SUSP 40 MG/ML (DEPO-medrol) VIAL (J1030) As Ordered ONE; -oxyCODONE 5MG TAB As Ordered ONE
--- NOTE | 2018-12-17 00:13 | ECWPNPC ---
PATIENT NAME: RUBY LOPEZ : 1965 GENDER: MALE VISIT DATE: 12/03/2018 DISCHARGE DATE: 12/03/18 1314 VISIT LOCKED DATE TIME: PHYSICIAN: ALMA DIXON MD RESOURCE: ALMA DIXON MD REASON FOR APPOINTMENT 1. W/C POST PROC HISTORY OF PRESENT ILLNESS HISTORY OF PRESENT ILLNESS: PAIN THE PATIENT DESCRIBES THE PAIN... 53 YEAR OLD MALE PATIENT WITH A HISTORY OF CHRONIC NECK PAIN. THE PATIENT DESCRIBES THE PAIN ACHING, BURNING, SHARP, STABBING AND CONTINUOUS WITH A PAIN SCORE OF 4-10/10 DEPENDING ON PHYSICAL ACTIVITY. THE PATIENT STATES THE PAIN BEGINS IN HIS NECK AND RADIATES TO HIS RIGHT ARM. THE PATIENT WAS HURT IN A WORK RELATED INJURY ON 05/30/2017 WHILE WORKING A [employer] RO[employer]ER FOR THE [employer] WHEN HE WAS WIDENING A TRAIL WITH A DOZER AND WAS THROWN INTO THE OVERHEAD AND HIT HIS HEAD. THE PATIENT WAS HERE FOR AN EPIDURAL INJECTION ON 10/17/2018 AND STATES HE HAD EXCELLENT PAIN RELIEF AND INCREASED MOBILITY FOR OVER A MONTH. PATIENT SAYS THE PAIN HAS RETURNED OVER THE PAST FEW DAYS. PATIENT HAS TAKEN MOBIC IN THE PAST FOR THE PAIN BUT STATES THAT IT IS NO LONGER HELPS., PATIENT DENIES UNEXPLAINABLE WEIGHT LOSS, FEVER, CHILLS, NEW CHANGES ON HIS URINARY OR BOWEL CONTROL. FALL RISK SCREENING: SCREENING :NO FALLS REPORTED IN THE LAST YEAR CURRENT MEDICATIONS TAKING LISINOPRIL 40 MG TABLET 1 TABLET ORALLY ONCE A DAY TAKING CHLORTHALIDONE 12.5 12.5MG TABLET 1 TAB ORAL TWICE A DAY (CARDIOLOGY) TAKING ATORVASTATIN CALCIUM 40 MG TABLET 1 TABLET ORALLY ONCE A DAY TAKING GLUCOPHAGE XR 500 MG TABLET EXTENDED RELEASE 24 HOUR 1 TABLET WITH FOOD ORALLY THREE TIMES A DAY TAKING COMBIVENT RESPIMAT 20-100 MCG/ACT AEROSOL 1 PUFF INHALATION FOUR TIMES DAILY (PULM) TAKING BREO ELLIPTA 100-25 MCG/INH AEROSOL POWDER BREATH ACTIVATED 1 PUFF INHALATION ONCE A DAY TAKING XOPENEX 0.63 MG/3ML NEBULIZATION SOLUTION TAKE 3 ML NEB INHALATION 4-5 TIMES DAILY NEEDED FOR COUGH/WHEEZING TAKING OXYGEN VIA CPAP NASAL CANNULA NIGHT TAKING INCRUSE ELLIPTA 62.5 MCG/INH AEROSOL POWDER BREATH ACTIVATED 1 PUFF INHALATION ONCE A DAY TAKING OMEPRAZOLE 40MG CAPSULE DELAYED RELEASE 1 CAPSULE ORALLY ONCE A DAY FOR REFLUX TAKING RANITIDINE & DIET MANAGE PROD 150 MG MISCELLANEOUS ORALLY DAILY TAKING MULTIVITAMIN - TABLET CHEWABLE ORALLY DAILY TAKING MOBIC 15 MG TABLET 1 TABLET NEEDED ORALLY WITH FOOD ONCE A DAY FOR PAIN TAKING CARVEDILOL 6.25MG TABLET 1 TABLET ORALLY TWICE A DAY NOT-TAKING DOXYCYCLINE MONOHYDRATE 100 MG CAPSULE 1 CAPSULE ORALLY BID, NOTES: DONE A WEEK AGO NOT-TAKING TESSALON PERLES 100 MG CAPSULE 1 CAPSULE NEEDED ORALLY THREE TIMES A DAY, NOTES: DONE A WEEK AGO NOT-TAKING PREDNISONE 10 MG TABLET 4 TABS QDAY X 3, 3 TAB QDAY X 3, 2 TABS QDAY X 3, 1 TAB QDAY X 3 DAYS ORALLY DIRECTED, NOTES: DONE A WEEK AGO NOT-TAKING TIZANIDINE HCL 4 MG TABLET 1 TABLET NEEDED ORALLY FOR SPASMS AND PAIN BEFORE BEDTIME MAY REPEAT IN 5 HRS MDD2 (WORKERS COMP), NOTES: (HAS AVAILABLE IF NEEDED) MEDICATION LIST REVIEWED AND RECONCILED WITH THE PATIENT PAST MEDICAL HISTORY ASTHMA/COPD ESOPHAGEAL REFLUX HTN HYPERLIPIDEMIA CHEST WALL PAIN SHOULDER ARTHRITIS BILATERAL TOBACCO USE (CHEW) CHRONIC RHINITIS RIGHT EYE CORNEAL INJURY DIABETES TYPE II NECK AND SHOULDER PAIN ALLERGIES N.K.D.A. SURGICAL HISTORY R KNEE SURGERY COLONOSCOPY (DR. PEREZ - REPEAT 2019) 08/03/2010 RIGHT KNEE ACL 08/20/15 COLONOSCOPY (DR. CLEMENT - REPEAT 2027) 06/04/2018 FAMILY HISTORY FATHER: 63 YRS, STROKE, HTN, DIAGNOSED WITH HYPERTENSION, STROKE MOTHER: ALIVE 75 YRS SIBLINGS: ALIVE 42,50,3 YRS, PNEUMONIA, HTN, HEART DISEASE, HYPERTENSION PATERNAL GRAND FATHER: [place], HEART DISEASE SOCIAL HISTORY GENERAL: TOBACCO USE ARE YOU A:FORMER SMOKER HOW LONG HAS IT BEEN SINCE YOU LAST SMOKED?1-5 YEARS SMOKING CESSATION INFORMATION GIVEN05/26/2016 LATEX QUESTIONNAIRE LATEX ALLERGY : HAVE YOU EVER DEVELOPED ANY TYPE OF REACTION AFTER HANDLING LATEX PRODUCTS SUCH RUBBER GLOVES, CONDOMS, DIAPHRAGMS, BALLOONS, SOCKS, OR UNDERWEAR?NO LATEX ALLERGY : HAVE YOU EVER DEVELOPED ANY TYPE OF REACTION DURING OR AFTER DENTAL APPOINTMENT, VAGINAL/RECTAL EXAMINATION, SURGICAL PROCEDURE, OR ANY OTHER EXPOSURE?NO LATEX RISK : HAVE YOU EVER HAD ANY DIFFICULTY BREATHING OR HIVES AFTER EATING OR HANDLING ANY FRUITS, OR VEGETABLES; SUCH KIWI, BANANAS, STONE FRUITS, OR CHESTNUTSNO LATEX RISK : DO YOU HAVE A PREVIOUS PERSONAL HISTORY OF MORE THAN NINE SURGERIES, SPINA BIFIDA, OR REPEATED CATHERTIZATIONS? NO LATEX RISK : ARE YOU FREQUENTLY EXPOSED TO LATEX PRODUCTS IN YOUR OCCUPATION?NO DATE ASKED : 11/13/2018 LUNG CANCER SCREENING SMOKING STATUS:FORMER SMOKER BMI CARE GOAL FOLLOW-UP ABOVE NORMAL BMI FOLLOW-UPDIETARY MANAGEMENT EDUCATION, GUIDANCE, AND COUNSELING ALCOHOL SCREENING DID YOU HAVE A DRINK CONTAINING ALCOHOL IN THE PAST YEAR?YES POINTS0 INTERPRETATIONNEGATIVE RECREATIONAL DRUG USE DENIES. CAFFEINE 2-5/DAY (COFFEE). SEXUAL HX HAD SEX IN THE LAST 12 MONTHS (VAGINAL, ORAL, OR ANAL)?YES WITHWOMEN ONLY HIV / HEP-C SCREENING HIV TEST OFFERED TO PATIENT:YES DATE OFFERED:09/17/2017 TEST ACCEPTED:NO REASON:PATIENT DECLINED HEP-C TEST OFFERED TO PATIENT:YES DATE OFFERED:09/17/2017 TEST ACCEPTED:NO REASON:PATIENT DECLINED BAPTISM BAPTISM NO MORMONISM BELIEFS THAT WOULD IMPACT HEALTH CARE. LANGUAGE LANGUAGES SPOKEN:[employer]UC[employer]. LEARNING BARRIERS / SPECIAL NEEDS CHANGE FROM LAST VISIT?NO BARRIERS TO LEARNING?NO HEARING IMPAIRED?YES : [place] BILATERALLY. HAS HEARING AIDES ON ORDER VISION IMPAIRED?YES :CORRECTIVE LENSES COGNITIVELY IMPAIRED?NO READINESS TO LEARN?YES LEARNING PREFERENCES?NO LEARNING CAPABILITIES PRESENT?YES EMOTIONAL BARRIERS?NO SPECIAL DEVICES?NO LINEN GRADER NEEDED?NO DOMESTIC VIOLENCE NONE. OCCUPATION: OUT OF WORK .. ON WORKERS COMP. DIET: TRYING LOW SODIUM, BUT DOES ADD SALT TO FOOD SOME. EXERCISE: WALKS. MARITAL STATUS: . PAIN CLINIC PFS, CLERGY, PUBLIC HEALTH REFERRALS HAS THE PATIENT BEEN EDUCATED REGARDING HIS/HER PLAN OF CARE?YES HAS THE PATIENT BEEN EDUCATED REGARDING PAIN, THE RISK FOR PAIN, THE IMPORTANCE OF EFFECTIVE PAIN MANAGEMENT, AND THE PAIN ASSESSMENT PROCESS?YES ADVANCE DIRECTIVE ADVANCE DIRECTIVE DISCUSSED WITH PATIENT:YES DECLINED REVIEWED WITH PATIENT 06/14/18 1440 JSREVIEWED WITH PATIENT 07/16/18 0851 BVREVIEWED WITH PATIENT 10/17/18 1156 JS. HOSPITALIZATION/MAJOR DIAGNOSTIC PROCEDURE RECTAL BLEEDING - COLONOSCOPY 07/2010 LOWER LEG CELLULITIS 2013 COPD EXACERBATION 07/2014 REVIEW OF SYSTEMS REVIEWED BY: PROVIDER: ALMA DIXON MD . CONSTITUTIONAL: ANY CHANGE IN YOUR MEDICAL CONDITION? NO . CHILLS NO . FEVER NO . INFECTION: DO YOU HAVE NEW INFECTIONS? NO . DO YOU HAVE HISTORY OF MRSA? NO . MUSCULOSKELETAL: ANY NEW PATTERNS OF PAIN OR NUMBNESS? NO . GASTROENTEROLOGY: ANY NEW CHANGE IN BOWEL CONTROL? NO . GENITOURINARY: ANY NEW CHANGE IN BLADDER CONTROL? NO . IS THERE A CHANCE YOU COULD BE ? NO . HEMATOLOGY/LYMPH: DO YOU TAKE ANY BLOOD THINNERS? (FOR EXAMPLE- COUMADIN, PLAVIX, AGGRENOX, PLATEL, PRADAXA, OR XARELTO) NO . WHEN WAS YOUR LAST DOSE? DATE: TIME: . NEUROLOGY: HAVE YOU FALLEN IN THE PAST 12 MONTHS? NO . ANY NEW EXTREMITY NUMBNESS OR WEAKNESS? YES, BILAT HAND WEAKNESS HAS WORSENED . CARDIOLOGY: DO YOU HAVE A PACEMAKER OR DEFIBRILLATOR? NO . RESPIRATORY: HAVE YOU BEEN SICK IN THE PAST WEEK? NO . FEVER NO . FLU LIKE SYMPTOMS? NO . COUGH NO . INTEGUMENTARY: DO YOU HAVE ANY RASHES OR OPEN SORES? NO . ALLERGIC/IMMUNO: ARE YOU ALLERGIC TO IV DYE? NO . ANY NEW ALLERGIES? NO . PSYCHIATRIC: DO YOU HAVE THOUGHTS OF HURTING YOURSELF OR SOMEONE ELSE? NO . ARE YOU ABUSED, NEGLECTED, OR IN AN UNSAFE ENVIRONMENT? NO . ENDOCRINOLOGY: ARE YOU DIABETIC? NO . OTHER: DO YOU NEED ANY PRESCRIPTIONS? NO . IF YES, PLEASE LIST: ____ . ANY NEW PROBLEMS WITH YOUR MEDICATIONS? NO . WHEN DID YOU LAST EAT? ____ . WHEN DID YOU LAST DRINK? ____ . WHAT DID YOU LAST DRINK? ____ . NAME OF PERSON DRIVING YOU HOME? ____ . DO YOU HAVE ANY OTHER QUESTIONS OR CONCERNS NO . VITAL SIGNS WT 250 LBS, HT 72.5 IN, BMI 33.44 INDEX, BP 147/90 MM HG, HR 66 /MIN, RR 18 /MIN, TEMP 97.7 F, OXYGEN SAT % 97%, NA INITIALS SC 10:59, REVIEWED BY: EM. EXAMINATION GENERAL EXAMINATION: PATIENT IS ALERT O X 3 AND COOPERATIVE. TENDERNESS IN THE NECK AREA. RIGHT ARM LONGER THAN LEFT ARM AT FLEXION. MRI OF THE CERVICAL SPINE DONE ON 11/02/2017 SHOWS STENOSIS AT C5-C6 AND BULGING DISCS AT MULTIPLE LEVELS. ASSESSMENTS CERVICAL DISC DISORDER WITH RADICULOPATHY OF CERVICAL REGION - M50.10 (PRIMARY) MYALGIA, OTHER SITE - M79.18 TREATMENT CERVICAL DISC DISORDER WITH RADICULOPATHY OF CERVICAL REGION CLINICAL NOTES: WE DISCUSSED SEVERAL ISSUES WITH MR. LOPEZ'S PAIN MANAGEMENT CASE. DUE TO THE CERVICAL RADICULOPATHY AND THE RELIEF GIVEN FROM THE CERVICAL EPIDURAL, I WOULD LIKE TO MOVE FORWARD WITH A SECOND CERVICAL INJECTION. THE LAST CERVICAL EPIDURAL PROVIDED GOOD PAIN RELIEF FOR OVER A MONTH. WE DISCUSSED THE BENEFITS, RISKS AND ALTERNATIVES OF THE INJECTION AND THE PATIENT WOULD LIKE TO PROCEED. I WILL START THE PATIENT ON CELEBREX 200 MG, DUE TO PATIENT STATING MOBIC NOT WORKING. WE WILL REQUEST AUTHORIZATION FOR THE VIOLA AND SCHEDULE AFTER AUTHORIZATION OBTAINED. INSTRUCTIONS WERE GIVEN, QUESTIONS WERE ANSWERED, PATIENT REPORTS UNDERSTANDING AND AGREES WITH THE PLAN. I, ROSITA LOPEZ, DOCUMENTED THE ABOVE INFORMATION ACTING A SCRIBE FOR DR. DIXON. I HAVE REVIEWED THE ABOVE DOCUMENT, WRITTEN BY ROSITA LOPEZ SCRIBE AND I VERIFY THAT IT IS ACCURATE.. OTHERS START CELEBREX CAPSULE, 200 MG, 1 CAPSULE WITH FOOD, ORALLY FOR PAIN, ONCE A DAY, 30 DAY(S), 30, REFILLS 1 PROCEDURES PN WORKMANS' COMP OPINION IN YOUR OPINION, WAS THE INCIDENT THAT THE PATIENT DESCRIBED THE COMPETENT MEDICAL CAUSE OF THIS INJURY/ILLNESS? YES ARE THE PATIENT'S COMPLAINTS CONSISTENT WITH HIS/HER HISTORY OF THE INJURY/ILLNESS? YES IS THE PATIENT'S HISTORY OF THE INJURY/ILLNESS CONSISTENT WITH YOUR OBJECTIVE FINDING? YES WHAT IS THE PERCENTAGE OF TEMPORARY IMPAIRMENT? MILD = 25% IS THE PATIENT WORKING? NO DOCTOR ON SITE: ALMA MARCOS MD PREVENTIVE MEDICINE PAIN CLINIC TEACHING: MEDICATIONS NEW MEDICATION CELEBREX WRITTEN INSTRUCTIONS PROVIDED TO PT. PRE-PROCEDURE INSTUCTIONS REVIEWED WITH PT.. PROCEDURE CODES FA211 ESTABILISHED PATIENT THE [facility] FACILITY CHARGE G8427 CURRENT MEDS W/DOSAGES DOCUMENTED G8730 PAIN ASSESS POS TOOL F/U PLAN DOC DISPOSITION & COMMUNICATION ELECTRONICALLY SIGNED BY ALMA DIXON MD, MD ON 12/16/2018 AT 08:41 PM EDT DISCLAIMER : THIS IS A VISIT SUMMARY EXTRACTED FROM THE [employer] CHART. IT IS NOT A COPY OF THE [employer] PROGRESS NOTE. FAB
== END ==
LOC: M PAIN 10:30
PROVIDERS: ATTEND Anesthesiology
DX: M50.10 Cervical disc disorder with radiculopathy, unspecified cervical region (principal); M79.18 Myalgia, other site; J44.9 Chronic obstructive pulmonary disease, unspecified; E11.9 Type 2 diabetes mellitus without complications; I10 Essential (primary) hypertension; K21.9 Gastro-esophageal reflux disease without esophagitis; E78.5 Hyperlipidemia, unspecified; M19.011 Primary osteoarthritis, right shoulder; M19.012 Primary osteoarthritis, left shoulder; Z79.84 Long term (current) use of oral hypoglycemic drugs; Z79.51 Long term (current) use of inhaled steroids; Z79.899 Other long term (current) drug therapy; Z87.891 Personal history of nicotine dependence

== ENCOUNTER → 2018-12-22 | Outpatient (REF) | payer OTHER ==
[2018-12-22 18:26] LABS: ALBUMIN 3.9 GM/DL (3.2-5.2); ALT/SGPT 82 U/L (12-78); BILIRUBIN,TOTAL 0.5 MG/DL (0.2-1.0); BLOOD UREA NITROGEN 21 MG/DL (7-18); CALCIUM LEVEL 9.2 MG/DL (8.5-10.1); CARBON DIOXIDE LEVEL 32 MEQ/L (21-32); CHLORIDE LEVEL 104 MEQ/L (98-107); CHOLESTEROL LEVEL 140 MG/DL (<200); CHOLESTEROL RISK RATIO 4.242 (<5); CREATININE FOR GFR 0.98 MG/DL (0.70-1.30); GLOMERULAR FILTRATION RATE > 60.0 (>56); GLUCOSE, FASTING 206 MG/DL (70-100); HDL CHOLESTEROL 33 MG/DL (>40); LDL CHOLESTEROL 56 MG/DL (<100); NON-HDL-C 107 MG/DL; POTASSIUM SERUM 4.9 MEQ/L (3.5-5.1); SODIUM LEVEL 141 MEQ/L (136-145); TRIGLYCERIDES LEVEL 255 MG/DL (<150)
[2018-12-22 18:30] LABS: BASO # 0.1 10^3/uL (0.0-0.2); BASO % 1.2 % (0.0-1.0); EOS # 0.3 10^3/uL (0.0-0.50); EOS % 3.3 % (0.0-3.0); HEMATOCRIT 46.9 % (42.0-52.0); HEMOGLOBIN 15.2 g/dl (13.5-17.5); LYMPH # 1.8 10^3/uL (1.5-4.5); LYMPH % 22.3 % (24.0-44.0); MEAN CORPUSCULAR HEMOGLOBIN 30.5 pg (27.0-33.0); MEAN CORPUSCULAR HGB CONC 32.4 g/dl (32.0-36.5); MONO # 0.7 10^3/uL (0.0-0.8); MONO % 8.8 % (0.0-5.0); NEUTROPHILS # 5.1 10^3/uL (1.8-7.7); NEUTROPHILS % 63.2 % (36.0-66.0); PLATELET COUNT, AUTOMATED 181 10^3/uL (150-450); RED BLOOD COUNT 4.99 10^6/uL (4.30-6.10); WHITE BLOOD COUNT 8.1 10^3/uL (4.0-10.0)
[2018-12-22 19:11] LABS: HEMOGLOBIN A1c 7.6 %
== END ==
LOC: M SFHCLERA 09:45
PROVIDERS: ATTEND Nurse Practitioner Family
DX: I10 Essential (primary) hypertension (principal); E78.2 Mixed hyperlipidemia; E11.65 Type 2 diabetes mellitus with hyperglycemia

== ENCOUNTER → 2019-05-20 | Outpatient (REF) | payer OTHER ==
[~2019-05-20] MED LIST changes: -OMEP40CA2 PO; +OMEP40CA97 PO
[2019-05-20 13:09] LABS: BASO # 0.1 10^3/uL (0.0-0.2); BASO % 1.3 % (0.0-1.0); EOS # 0.3 10^3/uL (0.0-0.5); EOS % 3.8 % (0.0-3.0); HEMATOCRIT 46.6 % (42.0-52.0); HEMOGLOBIN 15.6 g/dl (13.5-17.5); LYMPH # 1.7 10^3/uL (1.5-5.0); LYMPH % 23.1 % (24.0-44.0); MEAN CORPUSCULAR HEMOGLOBIN 30.6 pg (27.0-33.0); MEAN CORPUSCULAR HGB CONC 33.5 g/dl (32.0-36.5); MEAN CORPUSCULAR VOLUME 91.4 fl (80.0-96.0); MONO # 0.6 10^3/uL (0.0-0.8); MONO % 8.8 % (0.0-5.0); NEUTROPHILS # 4.4 10^3/uL (1.5-8.5); NEUTROPHILS % 61.6 % (36.0-66.0); PLATELET COUNT, AUTOMATED 189 10^3/uL (150-450); WHITE BLOOD COUNT 7.2 10^3/uL (4.0-10.0)
[2019-05-20 13:31] LABS: HEMOGLOBIN A1c 8.3 %
[2019-05-20 13:46] LABS: MALB URINE SIEMENS 61.8 MG/L; MAU/CREAT RATIO 26.6 MCG/MG (0.0-30.0)
[2019-05-20 14:06] LABS: ALBUMIN 3.7 GM/DL (3.2-5.2); ALT/SGPT 144 U/L (12-78); BILIRUBIN,TOTAL 0.7 MG/DL (0.2-1.0); BLOOD UREA NITROGEN 17 MG/DL (7-18); CALCIUM LEVEL 9.1 MG/DL (8.5-10.1); CARBON DIOXIDE LEVEL 31 MEQ/L (21-32); CHLORIDE LEVEL 97 MEQ/L (98-107); CHOLESTEROL LEVEL 224 MG/DL (<200); CREATININE FOR GFR 0.93 MG/DL (0.70-1.30); GLOMERULAR FILTRATION RATE > 60.0 (>56); GLUCOSE, FASTING 263 MG/DL (70-100); HDL CHOLESTEROL 28 MG/DL (>40); NON-HDL-C 196 MG/DL; POTASSIUM SERUM 4.9 MEQ/L (3.5-5.1); SODIUM LEVEL 135 MEQ/L (136-145); TRIGLYCERIDES LEVEL 1485 MG/DL (<150)
== END ==
LOC: M SFHCLERA 07:23
PROVIDERS: ATTEND Nurse Practitioner Family
DX: I10 Essential (primary) hypertension (principal); E11.65 Type 2 diabetes mellitus with hyperglycemia; E78.2 Mixed hyperlipidemia

== ENCOUNTER → 2019-05-30 | Outpatient (CLI) | payer OTHER ==
--- NOTE | 2019-05-31 05:12 | REP ---
Clinical: Elevated liver function tests. Technique: Real time roberts scale ultrasound examination using curved array transducer. Findings: Liver is increased echogenicity with poor through transmission suggesting fatty infiltration. No obvious focal hepatic lesion identified. The pancreas is incompletely evaluated due to interposed bowel gas but visualized portions appear normal. The gallbladder is unremarkable and without gallstones, wall thickening, or pericholecystic fluid. No biliary ductal dilatation is appreciated and the common bile duct measures 4.6 mm diameter. The right kidney is normal in reniform shape without hydronephrosis and measures 13.3 x 5.5 x 5.3 cm. No ascites in the visualized right upper quadrant. Impression: Hepatic steatosis. Electronically Signed by Abimael Blakely MD 05/31/2019 05:03 A
== END ==
LOC: M LRY 08:42
PROVIDERS: ATTEND Nurse Practitioner Family
DX: R74.8 Abnormal levels of other serum enzymes (principal); K76.0 Fatty (change of) liver, not elsewhere classified

== ENCOUNTER → 2019-06-12 | Outpatient (CLI) | payer OTHER ==
--- NOTE | 2019-06-26 03:06 | ECWPNPC ---
PATIENT NAME: RUBY LOPEZ : 1965 GENDER: MALE VISIT DATE: 06/12/2019 DISCHARGE DATE: 06/12/19 1239 VISIT LOCKED DATE TIME: PHYSICIAN: ORVILLE VU RESOURCE: ORVILLE VU REASON FOR APPOINTMENT 1. DISCUSS DENIAL VIOLA HISTORY OF PRESENT ILLNESS HISTORY OF PRESENT ILLNESS: HERE FOR F/U OF PERSISTENT NECK AND RIGHT ARM PAIN.THIS IS A WORK RELATED INJURY WITH DOI-05/30/17.HE REPORTS HE WAS OPERATING A D4 BULLDOZER WHEN HE STOPPED ABRUPTLY AND HIT MIRROR AND STEEL ENCASED LIGHT-ROOF OF DOZER AND HIT RIGHT FOREHEAD/EYE AND HAS SUFFERED NECK PAIN AND RADICULAR SYMPTOMS IN ARMS SINCE.HAS BENEFITED FROM VIOLA DONE HERE IN BOTH DECREASED PAIN AND IMPROVED FUNCTIONALITY FOR AT LEAST 2 MONTHS POST PROCEDURE.RATING PAIN VAS 5-9/10.DESCRIBES PAIN CONTINUOUS,ACHING AND SHARP. PAIN THE PATIENT DESCRIBES THE PAIN... FALL RISK SCREENING: SCREENING :NO FALLS REPORTED IN THE LAST YEAR CURRENT MEDICATIONS TAKING LISINOPRIL 40 MG TABLET 1 TABLET ORALLY ONCE A DAY TAKING CHLORTHALIDONE 12.5 12.5MG TABLET 1 TAB ORAL TWICE A DAY (CARDIOLOGY) TAKING COMBIVENT RESPIMAT 20-100 MCG/ACT AEROSOL 1 PUFF INHALATION FOUR TIMES DAILY (PULM) TAKING INCRUSE ELLIPTA 62.5 MCG/INH AEROSOL POWDER BREATH ACTIVATED 1 PUFF INHALATION ONCE A DAY TAKING XOPENEX 0.63 MG/3ML NEBULIZATION SOLUTION TAKE 3 ML NEB INHALATION 4-5 TIMES DAILY NEEDED FOR COUGH/WHEEZING TAKING OXYGEN VIA CPAP NASAL CANNULA NIGHT TAKING RANITIDINE & DIET MANAGE PROD 150 MG MISCELLANEOUS ORALLY DAILY TAKING CELEBREX 200 MG CAPSULE 1 CAPSULE WITH FOOD ORALLY FOR PAIN ONCE A DAY TAKING MULTIVITAMIN - TABLET CHEWABLE ORALLY DAILY TAKING OMEPRAZOLE 40MG CAPSULE DELAYED RELEASE 1 CAPSULE ORALLY ONCE A DAY FOR REFLUX TAKING GLUCOPHAGE XR 500 MG TABLET EXTENDED RELEASE 24 HOUR 1 TABLET WITH FOOD ORALLY THREE TIMES A DAY TAKING ATORVASTATIN CALCIUM 40 MG TABLET 1 TABLET ORALLY ONCE A DAY TAKING CARVEDILOL 6.25MG TABLET 1 TABLET ORALLY TWICE A DAY TAKING FLUTICASONE-SALMETEROL 232-14 MCG/ACT AEROSOL POWDER BREATH ACTIVATED INHALE 1 PUFF TWICE DAILY INHALATION TAKING CELEXA 20 MG TABLET 1 TABLET ORALLY ONCE A DAY NOT-TAKING BREO ELLIPTA 100-25 MCG/INH AEROSOL POWDER BREATH ACTIVATED 1 PUFF INHALATION ONCE A DAY NOT-TAKING TIZANIDINE HCL 4 MG TABLET 1 TABLET NEEDED ORALLY FOR SPASMS AND PAIN BEFORE BEDTIME MAY REPEAT IN 5 HRS MDD2 (WORKERS COMP), NOTES: (HAS AVAILABLE IF NEEDED) MEDICATION LIST REVIEWED AND RECONCILED WITH THE PATIENT PAST MEDICAL HISTORY ASTHMA/COPD ESOPHAGEAL REFLUX HTN HYPERLIPIDEMIA CHEST WALL PAIN SHOULDER ARTHRITIS BILATERAL TOBACCO USE (CHEW) CHRONIC RHINITIS RIGHT EYE CORNEAL INJURY DIABETES TYPE II NECK AND SHOULDER PAIN ALLERGIES N.K.D.A. SURGICAL HISTORY R KNEE SURGERY COLONOSCOPY (DR. PEREZ - REPEAT 2019) 08/03/2010 RIGHT KNEE ACL 08/20/15 COLONOSCOPY (DR. CLEMENT - REPEAT 2027) 06/04/2018 FAMILY HISTORY FATHER: 63 YRS, STROKE, HTN, DIAGNOSED WITH HYPERTENSION, UNSPECIFIED CEREBRAL ARTERY OCCLUSION WITH CEREBRAL INFARCTION MOTHER: ALIVE 75 YRS SIBLINGS: ALIVE 42,50,3 YRS, PNEUMONIA, HTN, HYPERTENSION, UNSPECIFIED HEART DISEASE PATERNAL GRAND FATHER: [place], UNSPECIFIED HEART DISEASE SOCIAL HISTORY GENERAL: TOBACCO USE ARE YOU A:FORMER SMOKER HOW LONG HAS IT BEEN SINCE YOU LAST SMOKED?1-5 YEARS SMOKING CESSATION INFORMATION GIVEN05/26/2016 HIV / HEP-C SCREENING HIV TEST OFFERED TO PATIENT:YES DATE OFFERED:12/24/2018 TEST ACCEPTED:NO HEP-C TEST OFFERED TO PATIENT:YES DATE OFFERED:12/24/2018 REASON:PATIENT DECLINED TEST ACCEPTED:NO REASON:PATIENT DECLINED BROCHURE PROVIDED TO PATIENTYES OTHERS AT HOME: OTHER NON-RELATIVE. EDUCATION LEVEL OF EDUCATION:HIGH SCHOOL DIET: LOW SALT AND LOW CARBOHYDRATE. LANGUAGE LANGUAGES SPOKEN:[place] DOMESTIC VIOLENCE DO YOU FEEL SAFE IN YOUR ENVIRONMENT?YES BMI CARE GOAL FOLLOW-UP ABOVE NORMAL BMI FOLLOW-UPDIETARY MANAGEMENT EDUCATION, GUIDANCE, AND COUNSELING RECREATIONAL DRUG USE DRUG USE?NO EXERCISE: WALKS. LEARNING BARRIERS / SPECIAL NEEDS CHANGE FROM LAST VISIT?NO BARRIERS TO LEARNING?NO HEARING IMPAIRED?YES VISION IMPAIRED?YES COGNITIVELY IMPAIRED?NO : [place] BILATERALLY. HAS HEARING AIDES ON ORDER :CORRECTIVE LENSES READINESS TO LEARN?YES LEARNING PREFERENCES?NO LEARNING CAPABILITIES PRESENT?YES EMOTIONAL BARRIERS?NO SPECIAL DEVICES?NO RECEPTIONIST NEEDED?NO LUNG CANCER SCREENING SMOKING STATUS:FORMER SMOKER PAIN CLINIC PFS, CLERGY, PUBLIC HEALTH REFERRALS HAS THE PATIENT BEEN EDUCATED REGARDING HIS/HER PLAN OF CARE?YES HAS THE PATIENT BEEN EDUCATED REGARDING PAIN, THE RISK FOR PAIN, THE IMPORTANCE OF EFFECTIVE PAIN MANAGEMENT, AND THE PAIN ASSESSMENT PROCESS?YES LATEX QUESTIONNAIRE LATEX ALLERGY : HAVE YOU EVER DEVELOPED ANY TYPE OF REACTION AFTER HANDLING LATEX PRODUCTS SUCH RUBBER GLOVES, CONDOMS, DIAPHRAGMS, BALLOONS, SOCKS, OR UNDERWEAR?NO LATEX ALLERGY : HAVE YOU EVER DEVELOPED ANY TYPE OF REACTION DURING OR AFTER DENTAL APPOINTMENT, VAGINAL/RECTAL EXAMINATION, SURGICAL PROCEDURE, OR ANY OTHER EXPOSURE?NO DATE ASKED : 11/13/2018 LATEX RISK : HAVE YOU EVER HAD ANY DIFFICULTY BREATHING OR HIVES AFTER EATING OR HANDLING ANY FRUITS, OR VEGETABLES; SUCH KIWI, BANANAS, STONE FRUITS, OR CHESTNUTSNO LATEX RISK : DO YOU HAVE A PREVIOUS PERSONAL HISTORY OF MORE THAN NINE SURGERIES, SPINA BIFIDA, OR REPEATED CATHERIZATIONS? NO LATEX RISK : ARE YOU FREQUENTLY EXPOSED TO LATEX PRODUCTS IN YOUR OCCUPATION?NO CAFFEINE 2-5/DAY (COFFEE). ADVANCE DIRECTIVE ADVANCE DIRECTIVE DISCUSSED WITH PATIENT:YES DECLINED HOAHAOISM [id number] NONE MARITAL STATUS: . ALCOHOL SCREENING DID YOU HAVE A DRINK CONTAINING ALCOHOL IN THE PAST YEAR?YES POINTS0 INTERPRETATIONNEGATIVE OCCUPATION: OUT OF WORK .. ON WORKERS COMP. SEXUAL HX HAD SEX IN THE LAST 12 MONTHS (VAGINAL, ORAL, OR ANAL)?YES WITHWOMEN ONLY REVIEWED WITH PATIENT 06/14/18 1440 JSREVIEWED WITH PATIENT 07/16/18 0851 BVREVIEWED WITH PATIENT 10/17/18 1156 JS. HOSPITALIZATION/MAJOR DIAGNOSTIC PROCEDURE RECTAL BLEEDING - COLONOSCOPY 07/2010 LOWER LEG CELLULITIS 2013 COPD EXACERBATION 07/2014 REVIEW OF SYSTEMS REVIEWED BY: PROVIDER: [facility] BIGGS . CONSTITUTIONAL: ANY CHANGE IN YOUR MEDICAL CONDITION? NO . CHILLS NO . FEVER NO . INFECTION: DO YOU HAVE NEW INFECTIONS? NO . DO YOU HAVE HISTORY OF MRSA? NO . MUSCULOSKELETAL: ANY NEW PATTERNS OF PAIN OR NUMBNESS? YES - GOING INTO FINGERS . GASTROENTEROLOGY: ANY NEW CHANGE IN BOWEL CONTROL? NO . GENITOURINARY: ANY NEW CHANGE IN BLADDER CONTROL? NO . IS THERE A CHANCE YOU COULD BE ? NO . HEMATOLOGY/LYMPH: DO YOU TAKE ANY BLOOD THINNERS? (FOR EXAMPLE- COUMADIN, PLAVIX, AGGRENOX, PLATEL, PRADAXA, OR XARELTO) NO . WHEN WAS YOUR LAST DOSE? DATE: TIME: . NEUROLOGY: HAVE YOU FALLEN IN THE PAST 12 MONTHS? NO . ANY NEW EXTREMITY NUMBNESS OR WEAKNESS? NO . CARDIOLOGY: DO YOU HAVE A PACEMAKER OR DEFIBRILLATOR? NO . RESPIRATORY: HAVE YOU BEEN SICK IN THE PAST WEEK? NO . FEVER NO . FLU LIKE SYMPTOMS? NO . COUGH NO . INTEGUMENTARY: DO YOU HAVE ANY RASHES OR OPEN SORES? NO . ALLERGIC/IMMUNO: ARE YOU ALLERGIC TO IV DYE? NO . ANY NEW ALLERGIES? NO . PSYCHIATRIC: DO YOU HAVE THOUGHTS OF HURTING YOURSELF OR SOMEONE ELSE? NO . ARE YOU ABUSED, NEGLECTED, OR IN AN UNSAFE ENVIRONMENT? NO . ENDOCRINOLOGY: ARE YOU DIABETIC? YES . OTHER: DO YOU NEED ANY PRESCRIPTIONS? NO . IF YES, PLEASE LIST: ____ . ANY NEW PROBLEMS WITH YOUR MEDICATIONS? NO . WHEN DID YOU LAST EAT? ____ . WHEN DID YOU LAST DRINK? ____ . WHAT DID YOU LAST DRINK? ____ . NAME OF PERSON DRIVING YOU HOME? ____ . DO YOU HAVE ANY OTHER QUESTIONS OR CONCERNS NO . VITAL SIGNS WT 258.4 LBS, HT 72.5 IN, BMI 34.56 INDEX, BP 127/85 MM HG, HR 79 /MIN, RR 18 /MIN, TEMP 97.7 F, OXYGEN SAT % 97%, NA INITIALS AW 1151. EXAMINATION GENERAL EXAMINATION: GENERAL AWAKE,ALERT ,PLEASANT . PSYCH AFFECT NORMAL . LUNGS: LUNG LAURA ARE CLEAR TO AUSCULTATION BILATERALLY. GOOD MOVEMENT OF AIR . HEART: S1, S2 IN A REGULAR RATE AND RHYTHM. NO SIGNIFICANT MURMURS, RUBS OR GALLOPS NOTED . MUSCULOSKELETAL: LIMITED ABDUCTION RIGHT ARM AT 35 DEGREES. CERVICAL TENDER OVER CERVICAL SPINE AND CERVICAL PARASPINALS.. NEUROLOGIC EXAM: DTR 2/4 BILAT UPPER/LOWER EXTREMITIES. DIAGNOSTIC TESTS REVIEWED MRI C/SPINE-11/02/17. ASSESSMENTS CERVICAL DISC DISORDER WITH RADICULOPATHY OF CERVICAL REGION - M50.10 TREATMENT OTHERS NOTES: C7/T1 VIOLA-WORKMANS COMP. PROCEDURES PN WORKMANS' COMP OPINION IN YOUR OPINION, WAS THE INCIDENT THAT THE PATIENT DESCRIBED THE COMPETENT MEDICAL CAUSE OF THIS INJURY/ILLNESS? YES ARE THE PATIENT'S COMPLAINTS CONSISTENT WITH HIS/HER HISTORY OF THE INJURY/ILLNESS? YES IS THE PATIENT'S HISTORY OF THE INJURY/ILLNESS CONSISTENT WITH YOUR OBJECTIVE FINDING? YES WHAT IS THE PERCENTAGE OF TEMPORARY IMPAIRMENT? MODERATE TO MARKED = 66.7% IS THE PATIENT WORKING? NO DOCTOR ON SITE: ALMA MARCOS MD PREVENTIVE MEDICINE PAIN CLINIC TEACHING: PROCEDURE TEACHING PRE CERVICAL EPIDURAL STEROID INJECTION INSTRUCTIONS REVIEWED WITH PT. VERBALIZED UNDERSTANDING USING TEACH BACK.. PROCEDURE CODES FA211 ESTABILISHED PATIENT [facility] CHARGE DISPOSITION & COMMUNICATION FOLLOW UP 2 MONTHS-[facility] (REASON: C7/T1 VIOLA-WORKMANS COMP) ELECTRONICALLY SIGNED BY KALYAN LUNA ON 06/25/2019 AT 11:06 AM EST DISCLAIMER : THIS IS A VISIT SUMMARY EXTRACTED FROM THE [employer] CHART. IT IS NOT A COPY OF THE [employer] PROGRESS NOTE. FAB
== END ==
LOC: M PAIN 11:15
PROVIDERS: ATTEND Nurse Practitioner Family
DX: M50.10 Cervical disc disorder with radiculopathy, unspecified cervical region (principal); J44.9 Chronic obstructive pulmonary disease, unspecified; K21.9 Gastro-esophageal reflux disease without esophagitis; I10 Essential (primary) hypertension; E78.5 Hyperlipidemia, unspecified; E11.9 Type 2 diabetes mellitus without complications; Z87.891 Personal history of nicotine dependence; Z79.51 Long term (current) use of inhaled steroids; Z79.899 Other long term (current) drug therapy

== ENCOUNTER → 2019-08-22 | Outpatient (CLI) | payer OTHER ==
--- NOTE | 2019-09-11 01:57 | ECWPNPC ---
PATIENT NAME: RUBY LOPEZ : 1965 GENDER: MALE VISIT DATE: 08/22/2019 DISCHARGE DATE: 08/22/19 1249 VISIT LOCKED DATE TIME: PHYSICIAN: ORVILLE VU RESOURCE: ORVILLE VU REASON FOR APPOINTMENT 1. W/C NECK HISTORY OF PRESENT ILLNESS HISTORY OF PRESENT ILLNESS: HERE FOR F/U OF PERSISTENT NECK AND RIGHT ARM PAIN.THIS IS A WORK RELATED INJURY WITH DOI-05/30/17.HE REPORTS HE WAS OPERATING A D4 BULLDOZER WHEN HE STOPPED ABRUPTLY AND HIT MIRROR AND STEEL ENCASED LIGHT-ROOF OF DOZER AND HIT RIGHT FOREHEAD/EYE AND HAS SUFFERED NECK PAIN AND RADICULAR SYMPTOMS IN ARMS SINCE.HAS BENEFITED FROM [place] DONE HERE IN BOTH DECREASED PAIN AND IMPROVED FUNCTIONALITY FOR AT LEAST 2 MONTHS POST PROCEDURE.RATING PAIN VAS 9/10.DESCRIBES PAIN CONTINUOUS,ACHING AND SHARP. PAIN THE PATIENT DESCRIBES THE PAIN... FALL RISK SCREENING: SCREENING :NO FALLS REPORTED IN THE LAST YEAR CURRENT MEDICATIONS TAKING CHLORTHALIDONE 12.5 12.5MG TABLET 1 TAB ORAL TWICE A DAY (CARDIOLOGY) TAKING COMBIVENT RESPIMAT 20-100 MCG/ACT AEROSOL 1 PUFF INHALATION FOUR TIMES DAILY (PULM) TAKING INCRUSE ELLIPTA 62.5 MCG/INH AEROSOL POWDER BREATH ACTIVATED 1 PUFF INHALATION ONCE A DAY TAKING XOPENEX 0.63 MG/3ML NEBULIZATION SOLUTION TAKE 3 ML NEB INHALATION 4-5 TIMES DAILY NEEDED FOR COUGH/WHEEZING TAKING OXYGEN VIA CPAP NASAL CANNULA NIGHT TAKING MULTIVITAMIN - TABLET CHEWABLE ORALLY DAILY TAKING OMEPRAZOLE 40MG CAPSULE DELAYED RELEASE 1 CAPSULE ORALLY ONCE A DAY FOR REFLUX TAKING GLUCOPHAGE XR 500 MG TABLET EXTENDED RELEASE 24 HOUR 1 TABLET WITH FOOD ORALLY THREE TIMES A DAY TAKING ATORVASTATIN CALCIUM 40 MG TABLET 1 TABLET ORALLY ONCE A DAY TAKING CARVEDILOL 6.25MG TABLET 1 TABLET ORALLY TWICE A DAY TAKING LISINOPRIL 40 MG TABLET 1 TABLET ORALLY ONCE A DAY TAKING CELEXA 20 MG TABLET 1 TABLET ORALLY ONCE A DAY TAKING ZANTAC 150 MG TABLET 1 TABLET ORALLY ONCE A DAY NOT-TAKING RANITIDINE & DIET MANAGE PROD 150 MG MISCELLANEOUS ORALLY DAILY NOT-TAKING CELEBREX 200 MG CAPSULE 1 CAPSULE WITH FOOD ORALLY FOR PAIN ONCE A DAY NOT-TAKING FLUTICASONE-SALMETEROL 232-14 MCG/ACT AEROSOL POWDER BREATH ACTIVATED INHALE 1 PUFF TWICE DAILY INHALATION NOT-TAKING PREDNISONE 20 MG TABLET 2 TABLETS ORALLY TWICE DAILY NOT-TAKING DOXYCYCLINE MONOHYDRATE 100 MG CAPSULE 1 CAPSULE ORALLY EVERY 12 HRS NOT-TAKING BREO ELLIPTA 100-25 MCG/INH AEROSOL POWDER BREATH ACTIVATED 1 PUFF INHALATION ONCE A DAY NOT-TAKING TIZANIDINE HCL 4 MG TABLET 1 TABLET NEEDED ORALLY FOR SPASMS AND PAIN BEFORE BEDTIME MAY REPEAT IN 5 HRS MDD2 (WORKERS COMP), NOTES: (HAS AVAILABLE IF NEEDED) MEDICATION LIST REVIEWED AND RECONCILED WITH THE PATIENT PAST MEDICAL HISTORY ASTHMA/COPD ESOPHAGEAL REFLUX HTN HYPERLIPIDEMIA CHEST WALL PAIN SHOULDER ARTHRITIS BILATERAL TOBACCO USE (CHEW) CHRONIC RHINITIS RIGHT EYE CORNEAL INJURY DIABETES TYPE II NECK AND SHOULDER PAIN ALLERGIES N.K.D.A. SURGICAL HISTORY R KNEE SURGERY COLONOSCOPY (DR. PEREZ - REPEAT 2019) 08/03/2010 RIGHT KNEE ACL 08/20/15 COLONOSCOPY (DR. CLEMENT - REPEAT 2027) 06/04/2018 FAMILY HISTORY FATHER: 63 YRS, STROKE, HTN, DIAGNOSED WITH HYPERTENSION, UNSPECIFIED CEREBRAL ARTERY OCCLUSION WITH CEREBRAL INFARCTION MOTHER: ALIVE 75 YRS SIBLINGS: ALIVE 42,50,3 YRS, PNEUMONIA, HTN, HYPERTENSION, UNSPECIFIED HEART DISEASE PATERNAL GRAND FATHER: [place], UNSPECIFIED HEART DISEASE SOCIAL HISTORY GENERAL: TOBACCO USE ARE YOU A:FORMER SMOKER HOW LONG HAS IT BEEN SINCE YOU LAST SMOKED?1-5 YEARS SMOKING CESSATION INFORMATION GIVEN05/26/2016 HIV / HEP-C SCREENING HIV TEST OFFERED TO PATIENT:YES DATE OFFERED:12/24/2018 TEST ACCEPTED:NO HEP-C TEST OFFERED TO PATIENT:YES DATE OFFERED:12/24/2018 REASON:PATIENT DECLINED TEST ACCEPTED:NO REASON:PATIENT DECLINED BROCHURE PROVIDED TO PATIENTYES OTHERS AT HOME: OTHER NON-RELATIVE. EDUCATION LEVEL OF EDUCATION:HIGH SCHOOL DIET: LOW SALT AND LOW CARBOHYDRATE. LANGUAGE LANGUAGES SPOKEN:ICELANDIC DOMESTIC VIOLENCE DO YOU FEEL SAFE IN YOUR ENVIRONMENT?YES BMI CARE GOAL FOLLOW-UP ABOVE NORMAL BMI FOLLOW-UPDIETARY MANAGEMENT EDUCATION, GUIDANCE, AND COUNSELING RECREATIONAL DRUG USE DRUG USE?NO EXERCISE: WALKS. LEARNING BARRIERS / SPECIAL NEEDS CHANGE FROM LAST VISIT?NO BARRIERS TO LEARNING?NO HEARING IMPAIRED?YES VISION IMPAIRED?YES COGNITIVELY IMPAIRED?NO : [place] BILATERALLY. HAS HEARING AIDES ON ORDER :CORRECTIVE LENSES READINESS TO LEARN?YES LEARNING PREFERENCES?NO LEARNING CAPABILITIES PRESENT?YES EMOTIONAL BARRIERS?NO SPECIAL DEVICES?NO MANAGER DISASTER RECOVERY NEEDED?NO LUNG CANCER SCREENING SMOKING STATUS:FORMER SMOKER PAIN CLINIC PFS, CLERGY, PUBLIC HEALTH REFERRALS HAS THE PATIENT BEEN EDUCATED REGARDING HIS/HER PLAN OF CARE?YES HAS THE PATIENT BEEN EDUCATED REGARDING PAIN, THE RISK FOR PAIN, THE IMPORTANCE OF EFFECTIVE PAIN MANAGEMENT, AND THE PAIN ASSESSMENT PROCESS?YES LATEX QUESTIONNAIRE LATEX ALLERGY : HAVE YOU EVER DEVELOPED ANY TYPE OF REACTION AFTER HANDLING LATEX PRODUCTS SUCH RUBBER GLOVES, CONDOMS, DIAPHRAGMS, BALLOONS, SOCKS, OR UNDERWEAR?NO LATEX ALLERGY : HAVE YOU EVER DEVELOPED ANY TYPE OF REACTION DURING OR AFTER DENTAL APPOINTMENT, VAGINAL/RECTAL EXAMINATION, SURGICAL PROCEDURE, OR ANY OTHER EXPOSURE?NO LATEX RISK : HAVE YOU EVER HAD ANY DIFFICULTY BREATHING OR HIVES AFTER EATING OR HANDLING ANY FRUITS, OR VEGETABLES; SUCH KIWI, BANANAS, STONE FRUITS, OR CHESTNUTSNO LATEX RISK : DO YOU HAVE A PREVIOUS PERSONAL HISTORY OF MORE THAN NINE SURGERIES, SPINA BIFIDA, OR REPEATED CATHERIZATIONS? NO LATEX RISK : ARE YOU FREQUENTLY EXPOSED TO LATEX PRODUCTS IN YOUR OCCUPATION?NO DATE ASKED : 11/13/2018 CAFFEINE 2-5/DAY (COFFEE). ADVANCE DIRECTIVE ADVANCE DIRECTIVE DISCUSSED WITH PATIENT:YES 08/22/2019 PATIENT HAS NO ADVANCED DIRECTIVES AND DECLINED INFORMATION ON HCP AT THIS TIME. JS CHRISTIANITY [id number] NONE MARITAL STATUS: . ALCOHOL SCREENING DID YOU HAVE A DRINK CONTAINING ALCOHOL IN THE PAST YEAR?YES POINTS0 INTERPRETATIONNEGATIVE OCCUPATION: OUT OF WORK .. ON WORKERS COMP. SEXUAL HX HAD SEX IN THE LAST 12 MONTHS (VAGINAL, ORAL, OR ANAL)?YES WITHWOMEN ONLY REVIEWED WITH PATIENT 06/14/18 1440 JSREVIEWED WITH PATIENT 07/16/18 0851 BVREVIEWED WITH PATIENT 10/17/18 1156 JSREVIEWED WITH PATIENT 08/22/2019 1218 JS. HOSPITALIZATION/MAJOR DIAGNOSTIC PROCEDURE RECTAL BLEEDING - COLONOSCOPY 07/2010 LOWER LEG CELLULITIS 2014 COPD EXACERBATION 07/2014 REVIEW OF SYSTEMS REVIEWED BY: PROVIDER: ORVILLE BIGGS . CONSTITUTIONAL: ANY CHANGE IN YOUR MEDICAL CONDITION? NO . CHILLS NO . FEVER NO . INFECTION: DO YOU HAVE NEW INFECTIONS? NO . DO YOU HAVE HISTORY OF MRSA? NO . MUSCULOSKELETAL: ANY NEW PATTERNS OF PAIN OR NUMBNESS? YES, STATES INCREASED PAIN . GASTROENTEROLOGY: ANY NEW CHANGE IN BOWEL CONTROL? NO . GENITOURINARY: ANY NEW CHANGE IN BLADDER CONTROL? NO . IS THERE A CHANCE YOU COULD BE ? NO . HEMATOLOGY/LYMPH: DO YOU TAKE ANY BLOOD THINNERS? (FOR EXAMPLE- COUMADIN, PLAVIX, AGGRENOX, PLATEL, PRADAXA, OR XARELTO) NO . WHEN WAS YOUR LAST DOSE? DATE: TIME: . NEUROLOGY: HAVE YOU FALLEN IN THE PAST 12 MONTHS? NO . ANY NEW EXTREMITY NUMBNESS OR WEAKNESS? YES, GENERALIZED NUMBNESS/TINGLING/WEAKNESS . CARDIOLOGY: DO YOU HAVE A PACEMAKER OR DEFIBRILLATOR? NO . RESPIRATORY: HAVE YOU BEEN SICK IN THE PAST WEEK? NO . FEVER NO . FLU LIKE SYMPTOMS? NO . COUGH NO . INTEGUMENTARY: DO YOU HAVE ANY RASHES OR OPEN SORES? NO . ALLERGIC/IMMUNO: ARE YOU ALLERGIC TO IV DYE? NO . ANY NEW ALLERGIES? NO . PSYCHIATRIC: DO YOU HAVE THOUGHTS OF HURTING YOURSELF OR SOMEONE ELSE? NO . ARE YOU ABUSED, NEGLECTED, OR IN AN UNSAFE ENVIRONMENT? NO . ENDOCRINOLOGY: ARE YOU DIABETIC? YES . OTHER: DO YOU NEED ANY PRESCRIPTIONS? NO . IF YES, PLEASE LIST: ____ . ANY NEW PROBLEMS WITH YOUR MEDICATIONS? NO . WHEN DID YOU LAST EAT? ____ . WHEN DID YOU LAST DRINK? ____ . WHAT DID YOU LAST DRINK? ____ . NAME OF PERSON DRIVING YOU HOME? ____ . DO YOU HAVE ANY OTHER QUESTIONS OR CONCERNS NO . VITAL SIGNS WT 256.4 LBS, HT 72.5 IN, BMI 34.29 INDEX, BP 136/81 MM HG, HR 92 /MIN, RR 18 /MIN, TEMP 98.6 F, OXYGEN SAT % 96%, SAFE IN ENV? (Y/N) YES, NA INITIALS AW 1212, REVIEWED BY: SHANNA. EXAMINATION GENERAL EXAMINATION: GENERAL AWAKE,ALERT ,PLEASANT . PSYCH AFFECT NORMAL . LUNGS: LUNG LAURA ARE CLEAR TO AUSCULTATION BILATERALLY. GOOD MOVEMENT OF AIR . HEART: S1, S2 IN A REGULAR RATE AND RHYTHM. NO SIGNIFICANT MURMURS, RUBS OR GALLOPS NOTED . MUSCULOSKELETAL: LIMITED ABDUCTION RIGHT ARM AT 35 DEGREES. CERVICAL TENDER OVER CERVICAL SPINE AND CERVICAL PARASPINALS.. NEUROLOGIC EXAM: DTR 2/4 BILAT UPPER/LOWER EXTREMITIES. DIAGNOSTIC TESTS REVIEWED MRI C/SPINE-11/02/17. ASSESSMENTS CERVICAL DISC DISORDER WITH RADICULOPATHY OF CERVICAL REGION - M50.10 (PRIMARY) TREATMENT CERVICAL DISC DISORDER WITH RADICULOPATHY OF CERVICAL REGION NOTES: CONTINUE WITH PLANS FOR CERVICAL EPIDURAL STEROID INJECTION. PROCEDURES PN WORKMANS' COMP OPINION IN YOUR OPINION, WAS THE INCIDENT THAT THE PATIENT DESCRIBED THE COMPETENT MEDICAL CAUSE OF THIS INJURY/ILLNESS? YES ARE THE PATIENT'S COMPLAINTS CONSISTENT WITH HIS/HER HISTORY OF THE INJURY/ILLNESS? YES IS THE PATIENT'S HISTORY OF THE INJURY/ILLNESS CONSISTENT WITH YOUR OBJECTIVE FINDING? YES WHAT IS THE PERCENTAGE OF TEMPORARY IMPAIRMENT? MODERATE TO MARKED = 66.7% IS THE PATIENT WORKING? NO DOCTOR ON SITE: ALMA MARCOS MD PREVENTIVE MEDICINE PAIN CLINIC TEACHING: PROCEDURE TEACHING PRE CERVICAL EPIDURAL STEROID INJECTION INSTRUCTIONS REVIEWED WITH PT. VERBALIZED UNDERSTANDING.. PROCEDURE CODES FA211 ESTABILISHED PATIENT [facility] FACILITY CHARGE DISPOSITION & COMMUNICATION FOLLOW UP APPTS ARE ALREADY BOOKED ELECTRONICALLY SIGNED BY KALYAN LUNA ON 09/10/2019 AT 02:30 PM EST DISCLAIMER : THIS IS A VISIT SUMMARY EXTRACTED FROM THE [employer] CHART. IT IS NOT A COPY OF THE [employer] PROGRESS NOTE. FAB
== END ==
LOC: M PAIN 11:30
PROVIDERS: ATTEND Nurse Practitioner Family
DX: M50.10 Cervical disc disorder with radiculopathy, unspecified cervical region (principal); J44.9 Chronic obstructive pulmonary disease, unspecified; K21.9 Gastro-esophageal reflux disease without esophagitis; I10 Essential (primary) hypertension; E78.5 Hyperlipidemia, unspecified; E11.9 Type 2 diabetes mellitus without complications; Z87.891 Personal history of nicotine dependence; Z79.51 Long term (current) use of inhaled steroids; Z79.899 Other long term (current) drug therapy

== ENCOUNTER → 2019-09-17 | Outpatient (CLI) | payer OTHER ==
[~2019-09-17] MED LIST changes: +ISOVUE-M 300 61% 15ML VIAL (Q9967) As Ordered ONE; +LIDOCAINE 1% SDV INJ 30 ML VIAL As Ordered ONE; +diazePAM 5 MG TAB As Ordered ONE; +methylPREDNISolone SUSP 40 MG/ML (DEPO-medrol) VIAL (J1030) As Ordered ONE; +oxyCODONE 5MG TAB As Ordered ONE
--- NOTE | 2019-09-17 12:33 | REP ---
Cervicothoracic spine: Single view. History: Injection procedure for pain. 8 seconds of fluoroscopy time is reported. Findings: A single last image hold fluoroscopically obtained spot radiograph of the cervicothoracic junction documents needle position and contrast injection associated with injection procedure. Electronically Signed by Jonathan Haile MD 09/17/2019 06:53 P
--- NOTE | 2019-09-27 04:41 | ECWPNPC ---
PATIENT NAME: RUBY LOPEZ : 1965 GENDER: MALE VISIT DATE: 09/17/2019 DISCHARGE DATE: 09/17/19 1141 VISIT LOCKED DATE TIME: PHYSICIAN: ALMA DIXON MD RESOURCE: ALMA DIXON MD REASON FOR APPOINTMENT 1. W/C C7/T1 [place] HISTORY OF PRESENT ILLNESS HISTORY OF PRESENT ILLNESS: PAIN THE PATIENT DESCRIBES THE PAIN... FALL RISK SCREENING: SCREENING :NO FALLS REPORTED IN THE LAST YEAR CURRENT MEDICATIONS TAKING CHLORTHALIDONE 12.5 12.5MG TABLET 1 TAB ORAL TWICE A DAY (CARDIOLOGY), NOTES: 09/16/2019 0800 TAKING COMBIVENT RESPIMAT 20-100 MCG/ACT AEROSOL 1 PUFF INHALATION FOUR TIMES DAILY (PULM), NOTES: 09/16/20191199 TAKING INCRUSE ELLIPTA 62.5 MCG/INH AEROSOL POWDER BREATH ACTIVATED 1 PUFF INHALATION ONCE A DAY, NOTES: 09/16/20191999 TAKING XOPENEX 0.63 MG/3ML NEBULIZATION SOLUTION TAKE 3 ML NEB INHALATION 4-5 TIMES DAILY NEEDED FOR COUGH/WHEEZING, NOTES: PRN TAKING OXYGEN VIA CPAP NASAL CANNULA NIGHT, NOTES: AT HS TAKING MULTIVITAMIN - TABLET CHEWABLE ORALLY DAILY, NOTES: 09/16/2019 0800 TAKING OMEPRAZOLE 40MG CAPSULE DELAYED RELEASE 1 CAPSULE ORALLY ONCE A DAY FOR REFLUX, NOTES: 09/16/2019 08 TAKING GLUCOPHAGE XR 500 MG TABLET EXTENDED RELEASE 24 HOUR 1 TABLET WITH FOOD ORALLY THREE TIMES A DAY, NOTES: 09/16/2019 08 TAKING ATORVASTATIN CALCIUM 40 MG TABLET 1 TABLET ORALLY ONCE A DAY, NOTES: 09/16/20191999 TAKING CARVEDILOL 6.25MG TABLET 1 TABLET ORALLY TWICE A DAY, NOTES: 09/16/20191999 TAKING LISINOPRIL 40 MG TABLET 1 TABLET ORALLY ONCE A DAY, NOTES: 09/16/20191999 TAKING CELEXA 20 MG TABLET 1 TABLET ORALLY ONCE A DAY, NOTES: 09/16/20191999 TAKING FLUTICASONE-SALMETEROL 232-14 MCG/ACT AEROSOL POWDER BREATH ACTIVATED INHALE 1 PUFF TWICE DAILY INHALATION , NOTES: 09/16/20191999 NOT-TAKING ZANTAC 150 MG TABLET 1 TABLET ORALLY ONCE A DAY NOT-TAKING RANITIDINE & DIET MANAGE PROD 150 MG MISCELLANEOUS ORALLY DAILY NOT-TAKING CELEBREX 200 MG CAPSULE 1 CAPSULE WITH FOOD ORALLY FOR PAIN ONCE A DAY NOT-TAKING PREDNISONE 20 MG TABLET 2 TABLETS ORALLY TWICE DAILY NOT-TAKING DOXYCYCLINE MONOHYDRATE 100 MG CAPSULE 1 CAPSULE ORALLY EVERY 12 HRS NOT-TAKING BREO ELLIPTA 100-25 MCG/INH AEROSOL POWDER BREATH ACTIVATED 1 PUFF INHALATION ONCE A DAY NOT-TAKING TIZANIDINE HCL 4 MG TABLET 1 TABLET NEEDED ORALLY FOR SPASMS AND PAIN BEFORE BEDTIME MAY REPEAT IN 5 HRS MDD2 (WORKERS COMP), NOTES: (HAS AVAILABLE IF NEEDED) MEDICATION LIST REVIEWED AND RECONCILED WITH THE PATIENT PAST MEDICAL HISTORY ASTHMA/COPD ESOPHAGEAL REFLUX HTN HYPERLIPIDEMIA CHEST WALL PAIN SHOULDER ARTHRITIS BILATERAL TOBACCO USE (CHEW) CHRONIC RHINITIS RIGHT EYE CORNEAL INJURY DIABETES TYPE II NECK AND SHOULDER PAIN ALLERGIES N.K.D.A. SURGICAL HISTORY R KNEE SURGERY COLONOSCOPY (DR. PEREZ - REPEAT 2019) 08/03/2010 RIGHT KNEE ACL 08/20/15 COLONOSCOPY (DR. CLEMENT - REPEAT 2027) 06/04/2018 FAMILY HISTORY FATHER: 63 YRS, STROKE, HTN, DIAGNOSED WITH HYPERTENSION, UNSPECIFIED CEREBRAL ARTERY OCCLUSION WITH CEREBRAL INFARCTION MOTHER: ALIVE 75 YRS SIBLINGS: ALIVE 42,50,3 YRS, PNEUMONIA, HTN, HYPERTENSION, UNSPECIFIED HEART DISEASE PATERNAL GRAND FATHER: [place], UNSPECIFIED HEART DISEASE SOCIAL HISTORY GENERAL: TOBACCO USE ARE YOU A:FORMER SMOKER HOW LONG HAS IT BEEN SINCE YOU LAST SMOKED?1-5 YEARS SMOKING CESSATION INFORMATION GIVEN05/26/2016 HIV / HEP-C SCREENING HIV TEST OFFERED TO PATIENT:YES DATE OFFERED:12/24/2018 TEST ACCEPTED:NO HEP-C TEST OFFERED TO PATIENT:YES DATE OFFERED:12/24/2018 REASON:PATIENT DECLINED TEST ACCEPTED:NO REASON:PATIENT DECLINED BROCHURE PROVIDED TO PATIENTYES OTHERS AT HOME: OTHER NON-RELATIVE. EDUCATION LEVEL OF EDUCATION:HIGH SCHOOL DIET: LOW SALT AND LOW CARBOHYDRATE. LANGUAGE LANGUAGES SPOKEN:[place]ER DOMESTIC VIOLENCE DO YOU FEEL SAFE IN YOUR ENVIRONMENT?YES BMI CARE GOAL FOLLOW-UP ABOVE NORMAL BMI FOLLOW-UPDIETARY MANAGEMENT EDUCATION, GUIDANCE, AND COUNSELING RECREATIONAL DRUG USE DRUG USE?NO EXERCISE: WALKS. LEARNING BARRIERS / SPECIAL NEEDS CHANGE FROM LAST VISIT?NO BARRIERS TO LEARNING?NO HEARING IMPAIRED?YES VISION IMPAIRED?YES COGNITIVELY IMPAIRED?NO : [place] BILATERALLY. HAS HEARING AIDES ON ORDER :CORRECTIVE LENSES READINESS TO LEARN?YES LEARNING PREFERENCES?NO LEARNING CAPABILITIES PRESENT?YES EMOTIONAL BARRIERS?NO SPECIAL DEVICES?NO ROLLER HAND NEEDED?NO LUNG CANCER SCREENING SMOKING STATUS:FORMER SMOKER PAIN CLINIC PFS, CLERGY, PUBLIC HEALTH REFERRALS HAS THE PATIENT BEEN EDUCATED REGARDING HIS/HER PLAN OF CARE?YES HAS THE PATIENT BEEN EDUCATED REGARDING PAIN, THE RISK FOR PAIN, THE IMPORTANCE OF EFFECTIVE PAIN MANAGEMENT, AND THE PAIN ASSESSMENT PROCESS?YES LATEX QUESTIONNAIRE LATEX ALLERGY : HAVE YOU EVER DEVELOPED ANY TYPE OF REACTION AFTER HANDLING LATEX PRODUCTS SUCH RUBBER GLOVES, CONDOMS, DIAPHRAGMS, BALLOONS, SOCKS, OR UNDERWEAR?NO LATEX ALLERGY : HAVE YOU EVER DEVELOPED ANY TYPE OF REACTION DURING OR AFTER DENTAL APPOINTMENT, VAGINAL/RECTAL EXAMINATION, SURGICAL PROCEDURE, OR ANY OTHER EXPOSURE?NO LATEX RISK : HAVE YOU EVER HAD ANY DIFFICULTY BREATHING OR HIVES AFTER EATING OR HANDLING ANY FRUITS, OR VEGETABLES; SUCH KIWI, BANANAS, STONE FRUITS, OR CHESTNUTSNO LATEX RISK : DO YOU HAVE A PREVIOUS PERSONAL HISTORY OF MORE THAN NINE SURGERIES, SPINA BIFIDA, OR REPEATED CATHERIZATIONS? NO LATEX RISK : ARE YOU FREQUENTLY EXPOSED TO LATEX PRODUCTS IN YOUR OCCUPATION?NO DATE ASKED : 09/17/2019 CAFFEINE 2-5/DAY (COFFEE). ADVANCE DIRECTIVE ADVANCE DIRECTIVE DISCUSSED WITH PATIENT:YES 08/22/2019 PATIENT HAS NO ADVANCED DIRECTIVES AND DECLINED INFORMATION ON HCP AT THIS TIME. JS ORTHODOX [id number] NONE MARITAL STATUS: . ALCOHOL SCREENING DID YOU HAVE A DRINK CONTAINING ALCOHOL IN THE PAST YEAR?YES POINTS0 INTERPRETATIONNEGATIVE OCCUPATION: OUT OF WORK .. ON WORKERS COMP. SEXUAL HX HAD SEX IN THE LAST 12 MONTHS (VAGINAL, ORAL, OR ANAL)?YES WITHWOMEN ONLY REVIEWED WITH PATIENT 06/14/18 1440 JSREVIEWED WITH PATIENT 07/16/18 0851 BVREVIEWED WITH PATIENT 10/17/18 1156 JSREVIEWED WITH PATIENT 08/22/2019 1218 JSREVIEWED WITH PATIENT 09/17/2019 0948 NLJ. HOSPITALIZATION/MAJOR DIAGNOSTIC PROCEDURE RECTAL BLEEDING - COLONOSCOPY 07/2010 LOWER LEG CELLULITIS 2014 COPD EXACERBATION 07/2014 REVIEW OF SYSTEMS REVIEWED BY: PROVIDER: . CONSTITUTIONAL: ANY CHANGE IN YOUR MEDICAL CONDITION? NO . CHILLS NO . FEVER NO . INFECTION: DO YOU HAVE NEW INFECTIONS? NO . DO YOU HAVE HISTORY OF MRSA? NO . MUSCULOSKELETAL: ANY NEW PATTERNS OF PAIN OR NUMBNESS? NO . GASTROENTEROLOGY: ANY NEW CHANGE IN BOWEL CONTROL? NO . GENITOURINARY: ANY NEW CHANGE IN BLADDER CONTROL? NO . IS THERE A CHANCE YOU COULD BE ? NO . HEMATOLOGY/LYMPH: DO YOU TAKE ANY BLOOD THINNERS? (FOR EXAMPLE- COUMADIN, PLAVIX, AGGRENOX, PLATEL, PRADAXA, OR XARELTO) NO . WHEN WAS YOUR LAST DOSE? DATE: TIME: . NEUROLOGY: HAVE YOU FALLEN IN THE PAST 12 MONTHS? NO . ANY NEW EXTREMITY NUMBNESS OR WEAKNESS? NO . CARDIOLOGY: DO YOU HAVE A PACEMAKER OR DEFIBRILLATOR? NO . RESPIRATORY: HAVE YOU BEEN SICK IN THE PAST WEEK? NO . FEVER NO . FLU LIKE SYMPTOMS? NO . COUGH NO . INTEGUMENTARY: DO YOU HAVE ANY RASHES OR OPEN SORES? NO . ALLERGIC/IMMUNO: ARE YOU ALLERGIC TO IV DYE? NO . ANY NEW ALLERGIES? NO . PSYCHIATRIC: DO YOU HAVE THOUGHTS OF HURTING YOURSELF OR SOMEONE ELSE? NO . ARE YOU ABUSED, NEGLECTED, OR IN AN UNSAFE ENVIRONMENT? NO . ENDOCRINOLOGY: ARE YOU DIABETIC? YES- FSBS 140 0700 09/17/2019 . OTHER: DO YOU NEED ANY PRESCRIPTIONS? NO . IF YES, PLEASE LIST: ____ . ANY NEW PROBLEMS WITH YOUR MEDICATIONS? NO . WHEN DID YOU LAST EAT? 09/16/2019 1900 . WHEN DID YOU LAST DRINK? 09/17/2019 0700 . WHAT DID YOU LAST DRINK? WATER . NAME OF PERSON DRIVING YOU HOME? DOROTA Damon'TAMIKA . DO YOU HAVE ANY OTHER QUESTIONS OR CONCERNS NO . VITAL SIGNS WT 255 LBS, HT 72.5 IN, BMI 34.11 INDEX, BP 136/79 MM HG, HR 83 /MIN, RR 18 /MIN, TEMP 96.0 F, OXYGEN SAT % 95%, BLOOD GLUCOSE LEVEL 140, SAFE IN ENV? (Y/N) YES, NA INITIALS AW 0942, REVIEWED BY: [id number]. ASSESSMENTS CERVICAL DISC DISORDER WITH RADICULOPATHY OF CERVICAL REGION - M50.10 (PRIMARY) TREATMENT CERVICAL DISC DISORDER WITH RADICULOPATHY OF CERVICAL REGION [facility] FLUORO GUIDE SPINE INJECTION (PAIN)[id number] PROCEDURES PN CERVICAL EPIDURAL PRE PROCEDURE DIAGNOSIS CERVICAL DISC DISORDER WITH RADICULOPATHY CERVICAL SPINAL STENOSIS POST PROCEDURE DIAGNOSIS CERVICAL DISC DISORDER WITH RADICULOPATHY, CERVICAL SPINAL STENOSIS PROCEDURE CERVICAL EPIDURAL STEROID INJECTION UNDER FLUOROSCOPIC GUIDANCE SURGEON DR. ALMA DIXON SOLAR HOT WATER INSTALLER NONE ANESTHESIA LOCAL PRE PROCEDURE NOTE THE PATIENT HAS A HISTORY OF CHRONIC CERVICAL PAIN. I EVALUATED THE PATIENT AND REVIEWED THE CHART. I WENT OVER THE RISKS, ALTERNATIVES, AND BENEFITS ASSOCIATED WITH THIS PROCEDURE. THE PATIENT WOULD LIKE TO PROCEED AND GIVES CONSENT TO PERFORM THE PROCEDURE. THE PATIENT DENIES UNEXPLAINABLE WEIGHT LOSS, FEVER, CHILLS, OR NEW CHANGES IN URINARY OR BOWEL CONTROL DESCRIPTION OF PROCEDURE THE PATIENT WAS BROUGHT TO THE PROCEDURE ROOM AND PLACED IN THE PRONE POSITION. THE CERVICOTHORACIC AREA WAS CLEANED WITH BETADINE SOLUTION AND DRAPED ASEPTICALLY. THE PROCEDURE WAS DONE UNDER STERILE CONDITIONS. I CHECKED LATERALITY AND THE LEVEL WHERE THE PROCEDURE WAS GOING TO BE PERFORMED WITH THE PATIENT AND THE SUPPORTING STAFF AT THE MOMENT OF THE TIME OUT IN THE PROCEDURE ROOM. UNDER FLUOROSCOPIC GUIDANCE, THE TARGET WAS SELECTED AT THE INTERLAMINAR LEVEL OF C7-T1. LIDOCAINE WAS USED TO NUMB THE SKIN AND THE SUBCUTANEOUS TISSUE BELOW IT. EPIDURAL TUOHY NEEDLE 17-GAUGE WAS ADVANCED UNDER FLUOROSCOPIC GUIDANCE AND FOLLOWING PATIENT FEEDBACK UNTIL THE EPIDURAL SPACE WAS REACHED 6 CM DEEP INTO THE SKIN BY THE LOSS OF RESISTANCE TECHNIQUE. ISOVUE M DYE 30%, 0.25 ML, WAS INJECTED SHOWING ADEQUATE SPREAD OF THE DYE. THEN, A SOLUTION OF 3 ML OF NORMAL SALINE WITH DEPO-MEDROL 60 MG WAS INJECTED SLOWLY FOLLOWING PATIENT FEEDBACK. THERE WAS NO EVIDENCE OF BLOOD, PARESTHESIA OR CEREBROSPINAL FLUID DURING THE PROCEDURE. THE PATIENT WAS SENT TO THE RECOVERY ROOM. THE PATIENT WAS MOVING THE EXTREMITIES AND DOING WELL. THERE WAS NO COMPLICATION DURING THE PROCEDURE. FLUOROSCOPY TIME WAS 8 SECONDS POST PROCEDURE NOTE THE PATIENT WILL BE SEEN IN A FOLLOW UP IN THE NEXT FEW WEEKS. I AM LOOKING FOR LONG LASTING PAIN RELIEF WITH THIS INJECTION. INSTRUCTIONS WERE GIVEN, QUESTIONS WERE ANSWERED, AND THE PATIENT EXPRESSED UNDERSTANDING AND AGREES WITH THE PLAN. I, JOSÉ TAPIA, DOCUMENTED THE ABOVE INFORMATION ACTING A SCRIBE FOR DR. DIXON. I HAVE REVIEWED THE ABOVE DOCUMENT, WRITTEN BY JOSÉ TAPIA SCRIBGloria AND I VERIFY THAT IT IS ACCURATE. PN WORKMANS' COMP OPINION IN YOUR OPINION, WAS THE INCIDENT THAT THE PATIENT DESCRIBED THE COMPETENT MEDICAL CAUSE OF THIS INJURY/ILLNESS? YES ARE THE PATIENT'S COMPLAINTS CONSISTENT WITH HIS/HER HISTORY OF THE INJURY/ILLNESS? YES IS THE PATIENT'S HISTORY OF THE INJURY/ILLNESS CONSISTENT WITH YOUR OBJECTIVE FINDING? YES WHAT IS THE PERCENTAGE OF TEMPORARY IMPAIRMENT? MILD = 25% IS THE PATIENT WORKING? NO DOCTOR ON SITE: ALMA MARCOS MD PROCEDURE CODES 40393 CERVICAL/THORACIC W/ IMAGING [id number] RADXPS IN END [id number] PXD DISPOSITION & COMMUNICATION FOLLOW UP 3 WEEKS ELECTRONICALLY SIGNED BY ALMA DIXON MD, MD ON 09/26/2019 AT 12:01 PM EST DISCLAIMER : THIS IS A VISIT SUMMARY EXTRACTED FROM THE [employer] CHART. IT IS NOT A COPY OF THE [employer] PROGRESS NOTE. MTDD
== END ==
LOC: M PAIN 09:15
PROVIDERS: ATTEND Anesthesiology
DX: M50.10 Cervical disc disorder with radiculopathy, unspecified cervical region (principal); J44.9 Chronic obstructive pulmonary disease, unspecified; K21.9 Gastro-esophageal reflux disease without esophagitis; I10 Essential (primary) hypertension; E78.5 Hyperlipidemia, unspecified; E11.9 Type 2 diabetes mellitus without complications; Z87.891 Personal history of nicotine dependence; Z79.51 Long term (current) use of inhaled steroids; Z79.84 Long term (current) use of oral hypoglycemic drugs; Z79.899 Other long term (current) drug therapy
CPT/HCPCS: 62321; J1030; Q9967

== ENCOUNTER → 2019-10-14 | Outpatient (CLI) | payer OTHER ==
[~2019-10-14] MED LIST changes: -ISOVUE-M 300 61% 15ML VIAL (Q9967) As Ordered ONE; -LIDOCAINE 1% SDV INJ 30 ML VIAL As Ordered ONE; -diazePAM 5 MG TAB As Ordered ONE; -methylPREDNISolone SUSP 40 MG/ML (DEPO-medrol) VIAL (J1030) As Ordered ONE; -oxyCODONE 5MG TAB As Ordered ONE
--- NOTE | 2019-10-15 06:47 | ECWPNPC ---
PATIENT NAME: RUBY LOPEZ : 1965 GENDER: MALE VISIT DATE: 10/14/2019 DISCHARGE DATE: 10/14/19 1019 VISIT LOCKED DATE TIME: PHYSICIAN: ORVILLE VU RESOURCE: ORVILLE VU REASON FOR APPOINTMENT 1. W/C POST VIOLA HISTORY OF PRESENT ILLNESS HISTORY OF PRESENT ILLNESS: HERE FOR POST PROCEDURE FOLLOW-UP. HAD CERVICAL EPIDURAL STEROID INJECTION ON 09/17/2019. REPORTING MARKED REDUCTION IN NECK PAIN AND ARM PAIN AND PARESTHESIA POST PROCEDURE X2 WEEKS. PAIN HAS ABRUPTLY RETURNED TO BASELINE. RATING NECK PAIN AN 8/10 VAS. IS SCHEDULED FOR SURGERY ON HIS LEFT SHOULDER AT THE END OF THIS MONTH. THIS IS A WORK RELATED INJURY WITH DOI-05/30/17.HE REPORTS HE WAS OPERATING A D4 BULLDOZER WHEN HE STOPPED ABRUPTLY AND HIT MIRROR AND STEEL ENCASED LIGHT-ROOF OF DOZER AND HIT RIGHT FOREHEAD/EYE AND HAS SUFFERED NECK PAIN AND RADICULAR SYMPTOMS IN ARMS SINCE. PAIN THE PATIENT DESCRIBES THE PAIN... FALL RISK SCREENING: SCREENING :NO FALLS REPORTED IN THE LAST YEAR CURRENT MEDICATIONS TAKING LISINOPRIL 40 MG TABLET 1 TABLET ORALLY ONCE A DAY TAKING CHLORTHALIDONE 12.5 12.5MG TABLET 1 TAB ORAL TWICE A DAY (CARDIOLOGY) TAKING ATORVASTATIN CALCIUM 40 MG TABLET 1 TABLET ORALLY ONCE A DAY TAKING GLUCOPHAGE XR 500 MG TABLET EXTENDED RELEASE 24 HOUR 1 TABLET WITH FOOD ORALLY THREE TIMES A DAY TAKING FLUTICASONE-SALMETEROL 232-14 MCG/ACT AEROSOL POWDER BREATH ACTIVATED INHALE 1 PUFF TWICE DAILY INHALATION TAKING COMBIVENT RESPIMAT 20-100 MCG/ACT AEROSOL 1 PUFF INHALATION FOUR TIMES DAILY NEEDDED (PULM) TAKING INCRUSE ELLIPTA 62.5 MCG/INH AEROSOL POWDER BREATH ACTIVATED 1 PUFF INHALATION ONCE A DAY TAKING XOPENEX 0.63 MG/3ML NEBULIZATION SOLUTION TAKE 3 ML NEB INHALATION 4-5 TIMES DAILY NEEDED FOR COUGH/WHEEZING TAKING OXYGEN VIA CPAP NASAL CANNULA NIGHT TAKING CELEXA 20 MG TABLET 1 TABLET ORALLY ONCE A DAY TAKING OMEPRAZOLE 40MG CAPSULE DELAYED RELEASE 1 CAPSULE ORALLY ONCE A DAY FOR REFLUX TAKING MULTIVITAMIN - TABLET CHEWABLE ORALLY DAILY NOT-TAKING CARVEDILOL 6.25MG TABLET 1 TABLET ORALLY TWICE A DAY MEDICATION LIST REVIEWED AND RECONCILED WITH THE PATIENT PAST MEDICAL HISTORY ASTHMA/COPD ESOPHAGEAL REFLUX HTN HYPERLIPIDEMIA CHEST WALL PAIN SHOULDER ARTHRITIS BILATERAL TOBACCO USE (CHEW) CHRONIC RHINITIS RIGHT EYE CORNEAL INJURY DIABETES TYPE II NECK AND SHOULDER PAIN HEART CATH ON 09/26/2019, ALL NEGATIVE ALLERGIES N.K.D.A. SURGICAL HISTORY R KNEE SURGERY COLONOSCOPY (DR. PEREZ - REPEAT 2019) 08/03/2010 RIGHT KNEE ACL 08/20/15 COLONOSCOPY (DR. CLEMENT - REPEAT 2027) 06/04/2018 CARDIAC CATH 09/2019 FAMILY HISTORY FATHER: 63 YRS, STROKE, HTN, DIAGNOSED WITH HYPERTENSION, UNSPECIFIED CEREBRAL ARTERY OCCLUSION WITH CEREBRAL INFARCTION MOTHER: ALIVE 75 YRS SIBLINGS: ALIVE 42,50,3 YRS, PNEUMONIA, HTN, HYPERTENSION, UNSPECIFIED HEART DISEASE PATERNAL GRAND FATHER: [place], UNSPECIFIED HEART DISEASE SOCIAL HISTORY GENERAL: TOBACCO USE ARE YOU A:FORMER SMOKER HOW LONG HAS IT BEEN SINCE YOU LAST SMOKED?1-5 YEARS SMOKING CESSATION INFORMATION GIVEN05/26/2016 HIV / HEP-C SCREENING HIV TEST OFFERED TO PATIENT:YES DATE OFFERED:12/24/2018 TEST ACCEPTED:NO HEP-C TEST OFFERED TO PATIENT:YES DATE OFFERED:12/24/2018 REASON:PATIENT DECLINED TEST ACCEPTED:NO REASON:PATIENT DECLINED BROCHURE PROVIDED TO PATIENTYES OTHERS AT HOME: OTHER NON-RELATIVE. EDUCATION LEVEL OF EDUCATION:HIGH SCHOOL DIET: LOW SALT AND LOW CARBOHYDRATE. LANGUAGE LANGUAGES SPOKEN:JAMAICAN DOMESTIC VIOLENCE DO YOU FEEL SAFE IN YOUR ENVIRONMENT?YES BMI CARE GOAL FOLLOW-UP ABOVE NORMAL BMI FOLLOW-UPDIETARY MANAGEMENT EDUCATION, GUIDANCE, AND COUNSELING RECREATIONAL DRUG USE DRUG USE?NO EXERCISE: WALKS. LEARNING BARRIERS / SPECIAL NEEDS CHANGE FROM LAST VISIT?NO BARRIERS TO LEARNING?NO HEARING IMPAIRED?YES VISION IMPAIRED?YES COGNITIVELY IMPAIRED?NO : [place] BILATERALLY. HAS HEARING AIDES ON ORDER :CORRECTIVE LENSES READINESS TO LEARN?YES LEARNING PREFERENCES?NO LEARNING CAPABILITIES PRESENT?YES EMOTIONAL BARRIERS?NO SPECIAL DEVICES?NO BUSINESS EDUCATION TEACHER NEEDED?NO LUNG CANCER SCREENING SMOKING STATUS:FORMER SMOKER PAIN CLINIC PFS, CLERGY, PUBLIC HEALTH REFERRALS HAS THE PATIENT BEEN EDUCATED REGARDING HIS/HER PLAN OF CARE?YES HAS THE PATIENT BEEN EDUCATED REGARDING PAIN, THE RISK FOR PAIN, THE IMPORTANCE OF EFFECTIVE PAIN MANAGEMENT, AND THE PAIN ASSESSMENT PROCESS?YES LATEX QUESTIONNAIRE LATEX ALLERGY : HAVE YOU EVER DEVELOPED ANY TYPE OF REACTION AFTER HANDLING LATEX PRODUCTS SUCH RUBBER GLOVES, CONDOMS, DIAPHRAGMS, BALLOONS, SOCKS, OR UNDERWEAR?NO LATEX ALLERGY : HAVE YOU EVER DEVELOPED ANY TYPE OF REACTION DURING OR AFTER DENTAL APPOINTMENT, VAGINAL/RECTAL EXAMINATION, SURGICAL PROCEDURE, OR ANY OTHER EXPOSURE?NO DATE ASKED : 09/17/2019 LATEX RISK : HAVE YOU EVER HAD ANY DIFFICULTY BREATHING OR HIVES AFTER EATING OR HANDLING ANY FRUITS, OR VEGETABLES; SUCH KIWI, BANANAS, STONE FRUITS, OR CHESTNUTSNO LATEX RISK : DO YOU HAVE A PREVIOUS PERSONAL HISTORY OF MORE THAN NINE SURGERIES, SPINA BIFIDA, OR REPEATED CATHERIZATIONS? NO LATEX RISK : ARE YOU FREQUENTLY EXPOSED TO LATEX PRODUCTS IN YOUR OCCUPATION?NO CAFFEINE 2-5/DAY (COFFEE). ADVANCE DIRECTIVE ADVANCE DIRECTIVE DISCUSSED WITH PATIENT:YES 08/22/2019 PATIENT HAS NO ADVANCED DIRECTIVES AND DECLINED INFORMATION ON HCP AT THIS TIME. JS CATHOLIC [id number] NONE MARITAL STATUS: . ALCOHOL SCREENING DID YOU HAVE A DRINK CONTAINING ALCOHOL IN THE PAST YEAR?YES POINTS0 INTERPRETATIONNEGATIVE OCCUPATION: OUT OF WORK .. ON WORKERS COMP. SEXUAL HX HAD SEX IN THE LAST 12 MONTHS (VAGINAL, ORAL, OR ANAL)?YES WITHWOMEN ONLY REVIEWED WITH PATIENT 06/14/18 1440 JSREVIEWED WITH PATIENT 07/16/18 0851 BVREVIEWED WITH PATIENT 10/17/18 1156 JSREVIEWED WITH PATIENT 08/22/2019 1218 JSREVIEWED WITH PATIENT 09/17/2019 0948 NLJ. HOSPITALIZATION/MAJOR DIAGNOSTIC PROCEDURE RECTAL BLEEDING - COLONOSCOPY 07/2010 LOWER LEG CELLULITIS 2013 COPD EXACERBATION 07/2014 REVIEW OF SYSTEMS REVIEWED BY: PROVIDER: ORVILLE BIGGS . CONSTITUTIONAL: ANY CHANGE IN YOUR MEDICAL CONDITION? NO . CHILLS NO . FEVER NO . INFECTION: DO YOU HAVE NEW INFECTIONS? NO . DO YOU HAVE HISTORY OF MRSA? NO . MUSCULOSKELETAL: ANY NEW PATTERNS OF PAIN OR NUMBNESS? NO . GASTROENTEROLOGY: ANY NEW CHANGE IN BOWEL CONTROL? NO . GENITOURINARY: ANY NEW CHANGE IN BLADDER CONTROL? NO . IS THERE A CHANCE YOU COULD BE ? NO . HEMATOLOGY/LYMPH: DO YOU TAKE ANY BLOOD THINNERS? (FOR EXAMPLE- COUMADIN, PLAVIX, AGGRENOX, PLATEL, PRADAXA, OR XARELTO) NO . WHEN WAS YOUR LAST DOSE? DATE: TIME: . NEUROLOGY: HAVE YOU FALLEN IN THE PAST 12 MONTHS? NO . ANY NEW EXTREMITY NUMBNESS OR WEAKNESS? YES . CARDIOLOGY: DO YOU HAVE A PACEMAKER OR DEFIBRILLATOR? NO . RESPIRATORY: HAVE YOU BEEN SICK IN THE PAST WEEK? NO . FEVER NO . FLU LIKE SYMPTOMS? NO . COUGH NO . INTEGUMENTARY: DO YOU HAVE ANY RASHES OR OPEN SORES? NO . ALLERGIC/IMMUNO: ARE YOU ALLERGIC TO IV DYE? NO . ANY NEW ALLERGIES? NO . PSYCHIATRIC: DO YOU HAVE THOUGHTS OF HURTING YOURSELF OR SOMEONE ELSE? NO . ARE YOU ABUSED, NEGLECTED, OR IN AN UNSAFE ENVIRONMENT? NO . ENDOCRINOLOGY: ARE YOU DIABETIC? YES . OTHER: DO YOU NEED ANY PRESCRIPTIONS? NO . IF YES, PLEASE LIST: ____ . ANY NEW PROBLEMS WITH YOUR MEDICATIONS? NO . WHEN DID YOU LAST EAT? ____ . WHEN DID YOU LAST DRINK? ____ . WHAT DID YOU LAST DRINK? ____ . NAME OF PERSON DRIVING YOU HOME? ____ . DO YOU HAVE ANY OTHER QUESTIONS OR CONCERNS NO . VITAL SIGNS WT 254.8 LBS, HT 72.5 IN, BMI 34.08 INDEX, BP 148/100 MM HG, HR 85 /MIN, RR 18 /MIN, TEMP 97.4 F, OXYGEN SAT % 95%, NA INITIALS AW 0940, REVIEWED BY: LS. EXAMINATION GENERAL EXAMINATION: GENERAL AWAKE,ALERT ,PLEASANT . PSYCH AFFECT NORMAL . LUNGS: LUNG LAURA ARE CLEAR TO AUSCULTATION BILATERALLY. GOOD MOVEMENT OF AIR . HEART: S1, S2 IN A REGULAR RATE AND RHYTHM. NO SIGNIFICANT MURMURS, RUBS OR GALLOPS NOTED . MUSCULOSKELETAL: LIMITED ABDUCTION RIGHT ARM AT 35 DEGREES. CERVICAL: TENDER OVER CERVICAL SPINE AND CERVICAL PARASPINALS.. NEUROLOGIC EXAM: DTR 2/4 BILAT UPPER/LOWER EXTREMITIES. DIAGNOSTIC TESTS REVIEWED MRI C/SPINE-11/02/17. ASSESSMENTS CERVICAL DISC DISORDER WITH RADICULOPATHY OF CERVICAL REGION - M50.10 (PRIMARY) TREATMENT CERVICAL DISC DISORDER WITH RADICULOPATHY OF CERVICAL REGION NOTES: CONTINUE HOME STRETCHING AND RANGE OF JOINT MOTION EXERCISES OF THE NECK. PROCEDURES PN WORKMANS' COMP OPINION IN YOUR OPINION, WAS THE INCIDENT THAT THE PATIENT DESCRIBED THE COMPETENT MEDICAL CAUSE OF THIS INJURY/ILLNESS? YES ARE THE PATIENT'S COMPLAINTS CONSISTENT WITH HIS/HER HISTORY OF THE INJURY/ILLNESS? YES IS THE PATIENT'S HISTORY OF THE INJURY/ILLNESS CONSISTENT WITH YOUR OBJECTIVE FINDING? YES WHAT IS THE PERCENTAGE OF TEMPORARY IMPAIRMENT? MODERATE TO MARKED = 66.7% IS THE PATIENT WORKING? NO DOCTOR ON SITE: ALMA MARCOS MD PROCEDURE CODES FA211 ESTABILISHED PATIENT [facility] CHARGE DISPOSITION & COMMUNICATION FOLLOW UP 2 MOS (REASON: WORKMEN'S COMP. NECK PAIN) ELECTRONICALLY SIGNED BY KALYAN LUNA ON 10/14/2019 AT 10:19 AM EST DISCLAIMER : THIS IS A VISIT SUMMARY EXTRACTED FROM THE [employer] CHART. IT IS NOT A COPY OF THE [employer] PROGRESS NOTE. FAB
== END ==
LOC: M PAIN 09:30
PROVIDERS: ATTEND Nurse Practitioner Family
DX: M50.10 Cervical disc disorder with radiculopathy, unspecified cervical region (principal)

== ENCOUNTER → 2019-12-02 | Outpatient (CLI) | payer OTHER ==
--- NOTE | 2019-12-03 07:26 | REP ---
Clinical: Lung screening. History smoking. Comparison: 05/26/2014 Technique: Axial low-dose noncontrast images from the thoracic inlet to the upper abdomen using lung screening technique. Findings: Subtle primarily basilar fibroatelectatic changes (left greater than right) are suggested. No consolidation, significant nodule or mass lesion is appreciated. No pleural effusion/reaction or pneumothorax. Tracheobronchial tree is patent. Mediastinum demonstrates mild atherosclerotic changes of the coronary arteries without cardiomegaly. Impression: Lung-RADS category I. No nodule or suspicious abnormality. Management recommendations include annual CT surveillance. Electronically Signed by Abimael Blakely MD 12/03/2019 07:18 A
== END ==
LOC: M RAD 09:31
PROVIDERS: ATTEND Internal Medicine Pulmonary Disease
DX: Z87.891 Personal history of nicotine dependence (principal)

== ENCOUNTER → 2019-12-16 | Outpatient (CLI) | payer OTHER ==
--- NOTE | 2019-12-18 04:21 | ECWPNPC ---
PATIENT NAME: RUBY LOPEZ : 1965 GENDER: MALE VISIT DATE: 12/16/2019 DISCHARGE DATE: 12/16/19 1336 VISIT LOCKED DATE TIME: PHYSICIAN: ORVILLE VU RESOURCE: ORVILLE VU REASON FOR APPOINTMENT 1. 2 MONTH - PAT COMPLETED HISTORY OF PRESENT ILLNESS HISTORY OF PRESENT ILLNESS: PATIENT IS AGREEABLE TO TELEMED VISIT TODAY VIA ZOOM. THIS IS A ROUTINE FOLLOW-UP OF PERSISTENT NECK PAIN STATUS POST WORK RELATED INJURY IN 2017. HAS RESPONDED WELL TO CERVICAL EPIDURAL STEROID INJECTIONS IN THE PAST. RATING PAIN LEVEL AN 8/10 VAS. PAIN HAS GOTTEN WORSE OVER THE PAST 6 WEEKS. REVIEWED MRI OF THE CERVICAL SPINE AND DISCUSSED TREATMENT OPTIONS. PAIN THE PATIENT DESCRIBES THE PAIN... FALL RISK SCREENING: SCREENING :NO FALLS REPORTED IN THE LAST YEAR CURRENT MEDICATIONS TAKING LISINOPRIL 40 MG TABLET 1 TABLET ORALLY ONCE A DAY TAKING FLUTICASONE-SALMETEROL 232-14 MCG/ACT AEROSOL POWDER BREATH ACTIVATED INHALE 1 PUFF TWICE DAILY INHALATION TAKING COMBIVENT RESPIMAT 20-100 MCG/ACT AEROSOL 1 PUFF INHALATION FOUR TIMES DAILY NEEDDED (PULM) TAKING INCRUSE ELLIPTA 62.5 MCG/INH AEROSOL POWDER BREATH ACTIVATED 1 PUFF INHALATION ONCE A DAY TAKING XOPENEX 0.63 MG/3ML NEBULIZATION SOLUTION TAKE 3 ML NEB INHALATION 4-5 TIMES DAILY NEEDED FOR COUGH/WHEEZING TAKING OXYGEN VIA CPAP NASAL CANNULA NIGHT TAKING MULTIVITAMIN - TABLET CHEWABLE ORALLY DAILY TAKING OMEPRAZOLE 40MG CAPSULE DELAYED RELEASE 1 CAPSULE ORALLY ONCE A DAY FOR REFLUX TAKING CELEXA 20 MG TABLET 1 TABLET ORALLY ONCE A DAY TAKING GLUCOPHAGE XR 500 MG TABLET EXTENDED RELEASE 24 HOUR 1 TABLET WITH FOOD ORALLY THREE TIMES A DAY TAKING ATORVASTATIN CALCIUM 40 MG TABLET 1 TABLET ORALLY ONCE A DAY NOT-TAKING TAMIFLU 75 MG CAPSULE 1 CAPSULE ORALLY DAILY NOT-TAKING CHLORTHALIDONE 12.5 12.5MG TABLET 1 TAB ORAL TWICE A DAY (CARDIOLOGY) NOT-TAKING CARVEDILOL 6.25MG TABLET 1 TABLET ORALLY TWICE A DAY MEDICATION LIST REVIEWED AND RECONCILED WITH THE PATIENT PAST MEDICAL HISTORY ASTHMA/COPD ESOPHAGEAL REFLUX HTN HYPERLIPIDEMIA CHEST WALL PAIN SHOULDER ARTHRITIS BILATERAL TOBACCO USE (CHEW) CHRONIC RHINITIS RIGHT EYE CORNEAL INJURY DIABETES TYPE II NECK AND SHOULDER PAIN HEART CATH ON 09/26/2019, ALL NEGATIVE ALLERGIES N.K.D.A. SURGICAL HISTORY R KNEE SURGERY COLONOSCOPY (DR. PEREZ - REPEAT 2019) 08/03/2010 RIGHT KNEE ACL 08/20/15 COLONOSCOPY (DR. CLEMENT - REPEAT 2027) 06/04/2018 CARDIAC CATH 09/2019 FAMILY HISTORY FATHER: 63 YRS, STROKE, HTN, DIAGNOSED WITH HYPERTENSION, UNSPECIFIED CEREBRAL ARTERY OCCLUSION WITH CEREBRAL INFARCTION MOTHER: ALIVE 75 YRS SIBLINGS: ALIVE 42,50,3 YRS, PNEUMONIA, HTN, HYPERTENSION, UNSPECIFIED HEART DISEASE PATERNAL GRAND FATHER: [place], UNSPECIFIED HEART DISEASE SOCIAL HISTORY GENERAL: TOBACCO USE ARE YOU A:FORMER SMOKER HOW LONG HAS IT BEEN SINCE YOU LAST SMOKED?5-10 YEARS SMOKING CESSATION INFORMATION GIVEN05/26/2016 LATEX QUESTIONNAIRE LATEX ALLERGY : HAVE YOU EVER DEVELOPED ANY TYPE OF REACTION AFTER HANDLING LATEX PRODUCTS SUCH RUBBER GLOVES, CONDOMS, DIAPHRAGMS, BALLOONS, SOCKS, OR UNDERWEAR?NO LATEX ALLERGY : HAVE YOU EVER DEVELOPED ANY TYPE OF REACTION DURING OR AFTER DENTAL APPOINTMENT, VAGINAL/RECTAL EXAMINATION, SURGICAL PROCEDURE, OR ANY OTHER EXPOSURE?NO DATE ASKED : 09/17/2019 LATEX RISK : HAVE YOU EVER HAD ANY DIFFICULTY BREATHING OR HIVES AFTER EATING OR HANDLING ANY FRUITS, OR VEGETABLES; SUCH KIWI, BANANAS, STONE FRUITS, OR CHESTNUTSNO LATEX RISK : DO YOU HAVE A PREVIOUS PERSONAL HISTORY OF MORE THAN NINE SURGERIES, SPINA BIFIDA, OR REPEATED CATHERIZATIONS? NO LATEX RISK : ARE YOU FREQUENTLY EXPOSED TO LATEX PRODUCTS IN YOUR OCCUPATION?NO LUNG CANCER SCREENING SMOKING STATUS:FORMER SMOKER BMI CARE GOAL FOLLOW-UP ABOVE NORMAL BMI FOLLOW-UPDIETARY MANAGEMENT EDUCATION, GUIDANCE, AND COUNSELING ALCOHOL SCREENING DID YOU HAVE A DRINK CONTAINING ALCOHOL IN THE PAST YEAR?YES POINTS0 INTERPRETATIONNEGATIVE RECREATIONAL DRUG USE DRUG USE?NO CAFFEINE 2-5/DAY (COFFEE). SEXUAL HX HAD SEX IN THE LAST 12 MONTHS (VAGINAL, ORAL, OR ANAL)?YES WITHWOMEN ONLY HIV / HEP-C SCREENING HIV TEST OFFERED TO PATIENT:YES DATE OFFERED:12/24/2018 TEST ACCEPTED:NO HEP-C TEST OFFERED TO PATIENT:YES DATE OFFERED:12/24/2018 REASON:PATIENT DECLINED TEST ACCEPTED:NO REASON:PATIENT DECLINED BROCHURE PROVIDED TO PATIENTYES SHINTO [id number] NONE LANGUAGE LANGUAGES SPOKEN:ST HELENIAN EDUCATION LEVEL OF EDUCATION:HIGH SCHOOL LEARNING BARRIERS / SPECIAL NEEDS CHANGE FROM LAST VISIT?NO BARRIERS TO LEARNING?NO HEARING IMPAIRED?YES : [place] BILATERALLY. HAS HEARING AIDES ON ORDER VISION IMPAIRED?YES :CORRECTIVE LENSES COGNITIVELY IMPAIRED?NO READINESS TO LEARN?YES LEARNING PREFERENCES?NO LEARNING CAPABILITIES PRESENT?YES EMOTIONAL BARRIERS?NO SPECIAL DEVICES?NO GOVERNMENT SERVICE EXECUTIVE NEEDED?NO DOMESTIC VIOLENCE DO YOU FEEL SAFE IN YOUR ENVIRONMENT?YES OCCUPATION: OUT OF WORK .. ON WORKERS COMP. DIET: LOW SALT AND LOW CARBOHYDRATE. EXERCISE: WALKS. MARITAL STATUS: . OTHERS AT HOME: OTHER NON-RELATIVE. NEW PATIENT PAIN DIARY TODAY'S VISIT 12/13/19 PATIENT DESCRIBES PAIN :BURNING, HAVE IT ALL THE TIME, SHARP FROM 0-10, WHAT LEVEL IS YOUR PAIN TODAY?8 PRECIPITATING FACTORS TRYING TO LIFT SOMETHING, POSITION, ACTIVITY ALLEVIATING FACTORS REPOSITIONING WILL HELP SOME PAIN CLINIC PFS, CLERGY, PUBLIC HEALTH REFERRALS HAS THE PATIENT BEEN EDUCATED REGARDING HIS/HER PLAN OF CARE?YES HAS THE PATIENT BEEN EDUCATED REGARDING PAIN, THE RISK FOR PAIN, THE IMPORTANCE OF EFFECTIVE PAIN MANAGEMENT, AND THE PAIN ASSESSMENT PROCESS?YES ADVANCE DIRECTIVE ADVANCE DIRECTIVE DISCUSSED WITH PATIENT:YES 08/22/2019 PATIENT HAS NO ADVANCED DIRECTIVES AND DECLINED INFORMATION ON HCP AT THIS TIME. JS HOSPITALIZATION/MAJOR DIAGNOSTIC PROCEDURE RECTAL BLEEDING - COLONOSCOPY 07/2010 LOWER LEG CELLULITIS 2013 COPD EXACERBATION 07/2014 REVIEW OF SYSTEMS REVIEWED BY: PROVIDER: ORVILLE BIGGS . CONSTITUTIONAL: ANY CHANGE IN YOUR MEDICAL CONDITION? NO . CHILLS NO . FEVER NO . INFECTION: DO YOU HAVE NEW INFECTIONS? NO . DO YOU HAVE HISTORY OF MRSA? NO . MUSCULOSKELETAL: ANY NEW PATTERNS OF PAIN OR NUMBNESS? NO . GASTROENTEROLOGY: ANY NEW CHANGE IN BOWEL CONTROL? NO . GENITOURINARY: ANY NEW CHANGE IN BLADDER CONTROL? NO . IS THERE A CHANCE YOU COULD BE ? NO . HEMATOLOGY/LYMPH: DO YOU TAKE ANY BLOOD THINNERS? (FOR EXAMPLE- COUMADIN, PLAVIX, AGGRENOX, PLATEL, PRADAXA, OR XARELTO) NO . WHEN WAS YOUR LAST DOSE? DATE: TIME: . NEUROLOGY: HAVE YOU FALLEN IN THE PAST 12 MONTHS? NO . ANY NEW EXTREMITY NUMBNESS OR WEAKNESS? NO . CARDIOLOGY: DO YOU HAVE A PACEMAKER OR DEFIBRILLATOR? NO . RESPIRATORY: HAVE YOU BEEN SICK IN THE PAST WEEK? NO . FEVER NO . FLU LIKE SYMPTOMS? NO . COUGH NO . INTEGUMENTARY: DO YOU HAVE ANY RASHES OR OPEN SORES? NO . ALLERGIC/IMMUNO: ARE YOU ALLERGIC TO IV DYE? NO . ANY NEW ALLERGIES? NO . PSYCHIATRIC: DO YOU HAVE THOUGHTS OF HURTING YOURSELF OR SOMEONE ELSE? NO . ARE YOU ABUSED, NEGLECTED, OR IN AN UNSAFE ENVIRONMENT? NO . ENDOCRINOLOGY: ARE YOU DIABETIC? NO . OTHER: DO YOU NEED ANY PRESCRIPTIONS? NO . IF YES, PLEASE LIST: ____ . ANY NEW PROBLEMS WITH YOUR MEDICATIONS? NO . WHEN DID YOU LAST EAT? ____ . WHEN DID YOU LAST DRINK? ____ . WHAT DID YOU LAST DRINK? ____ . NAME OF PERSON DRIVING YOU HOME? ____ . DO YOU HAVE ANY OTHER QUESTIONS OR CONCERNS NO . EXAMINATION GENERAL EXAMINATION: GENERALNO ACUTE DISTRESS, WELL NOURISHED AND HYDRATED. PSYCHAPPROPRIATE MOOD AND AFFECT . FACE:UNREMARKABLE. ASSESSMENTS CERVICAL DISC DISORDER WITH RADICULOPATHY OF CERVICAL REGION - M50.10 (PRIMARY) TREATMENT CERVICAL DISC DISORDER WITH RADICULOPATHY OF CERVICAL REGION NOTES: RETURN TO CLINIC IN 4-6 WEEKS FOR PREPROCEDURE EVALUATION. WE WILL CONSIDER CERVICAL EPIDURAL STEROID INJECTION. TOTAL TIME SPENT DURING TELEMED VISIT WAS APPROXIMATELY 12 MINUTES. OTHERS NOTES: NO VITAL SIGNS TAKEN, THIS IS A TELEPHONE/VIRTUAL VISIT. DISPOSITION & COMMUNICATION FOLLOW UP 4-6 WEEKS WORKMEN'S COMP PREPROCEDURE (REASON: WORKMEN'S COMP CERVICAL) ELECTRONICALLY SIGNED BY KALYAN LUNA ON 12/17/2019 AT 02:13 PM EDT DISCLAIMER : THIS IS A VISIT SUMMARY EXTRACTED FROM THE [employer] CHART. IT IS NOT A COPY OF THE [employer] PROGRESS NOTE. FAB
== END ==
LOC: M PAIN 13:15
PROVIDERS: ATTEND Nurse Practitioner Family
DX: M50.10 Cervical disc disorder with radiculopathy, unspecified cervical region (principal); J44.9 Chronic obstructive pulmonary disease, unspecified; K21.9 Gastro-esophageal reflux disease without esophagitis; I10 Essential (primary) hypertension; E11.9 Type 2 diabetes mellitus without complications; Z87.891 Personal history of nicotine dependence; Z79.51 Long term (current) use of inhaled steroids; Z79.84 Long term (current) use of oral hypoglycemic drugs; Z79.899 Other long term (current) drug therapy

== ENCOUNTER → 2020-05-19 | Outpatient (CLI) | payer MEDICARE, OTHER ==
--- NOTE | 2020-05-21 14:29 | SLEEPCENT ---
DATE: 05/19/2020 ORDERED BY: Crystal Trujillo Nocturnal polysomnography was performed for the titration of pressure therapy in this patient with obstructive sleep apnea syndrome. For testing, a ResMed AirFit F20 full-face mask of medium size was used with 2 liters of oxygen bled through the system. There was 8 hours and 43 minutes of data reviewed. There was 345 minutes of sleep identified. Sleep latency was prolonged at 37 minutes. REM latency was normal at 119 minutes. Sleep architecture was somewhat fragmented, but there were three REM cycles. Overall sleep efficiency was 66%. The electrocardiogram showed a sinus rhythm with some premature ventricular contractions (PVCs). Average heart rate was 72 beats per minute. EEG showed reasonably normal waveforms for wake and sleep. Best sleep was seen on a CPAP pressure of +17. Supplement oxygen was continued at 2 liters per minute. Some limb activity was seen early in the study. The limb movement arousal index on this occasion was 12.9. IMPRESSION: Obstructive sleep apnea syndrome (G47.33). RECOMMENDATION: Nightly use of pressure therapy, 17 cm of water with 2 liters of oxygen bled through the system. MTDD
== END ==
LOC: M SLEEP 20:00
PROVIDERS: ATTEND Physician Assistant
DX: G47.33 Obstructive sleep apnea (adult) (pediatric) (principal)

== ENCOUNTER → 2020-06-03 | Outpatient (CLI) | payer SELFPAY ==
--- NOTE | 2020-06-05 13:22 | SLEEPCENT ---
DATE: 06/03/2020 ORDERED BY: Asher Mcneil Nocturnal polysomnography was performed for the retitration of pressure therapy in this patient with obstructive sleep apnea syndrome. For testing, a ResMed F30 full-face mask of medium size was used. There was 14 cm of water pressure initially applied to the circuit, and the lights were extinguished. There was 6 hours and 22 minutes of data reviewed. There was 258 minutes of sleep identified. Sleep latency was mildly prolonged at 28.5 minutes. REM latency was short at 68 minutes. Sleep architecture was fairly good with three REM cycles. Overall sleep efficiency was 68.3%. The electrocardiogram showed a sinus rhythm with occasional premature ventricular contractions (PVCs). Average heart rate 80 beats per minute. EEG showed normal waveforms for wake and sleep. Respiratory events were reasonably palliated with CPAP at a pressure of +14. There was some limb activity noted despite optimal CPAP pressure. Limb movement arousal index is 10. IMPRESSION: Obstructive sleep apnea syndrome (G47.33). RECOMMENDATION: Nightly use of pressure therapy, 16 cm of water. MTDD
== END ==
LOC: M SLEEP 20:00
PROVIDERS: ATTEND Physician Assistant
DX: G47.33 Obstructive sleep apnea (adult) (pediatric) (principal)

== ENCOUNTER → 2020-06-05 | Outpatient (CLI) | payer MEDICARE ==
[2020-06-05 13:29] LABS: BASO # 0.1 10^3/uL (0.0-0.2); EOS # 0.2 10^3/uL (0.0-0.5); EOS % 3.3 % (0.0-3.0); HEMATOCRIT 47.6 % (42.0-52.0); LYMPH # 1.4 10^3/uL (1.5-5.0); LYMPH % 18.5 % (24.0-44.0); MEAN CORPUSCULAR HEMOGLOBIN 29.8 pg (27.0-33.0); MEAN CORPUSCULAR HGB CONC 33.6 g/dl (32.0-36.5); MEAN CORPUSCULAR VOLUME 88.6 fl (80.0-96.0); MONO # 0.7 10^3/uL (0.0-0.8); MONO % 9.4 % (0.0-5.0); NEUTROPHILS # 4.9 10^3/uL (1.5-8.5); NEUTROPHILS % 66.2 % (36.0-66.0); PLATELET COUNT, AUTOMATED 198 10^3/uL (150-450); RED BLOOD COUNT 5.37 10^6/uL (4.30-6.10); WHITE BLOOD COUNT 7.4 10^3/uL (4.0-10.0)
[2020-06-05 14:03] LABS: HEMOGLOBIN A1c 9.2 %
[2020-06-05 14:04] LABS: ALBUMIN 3.9 GM/DL (3.2-5.2); ALT/SGPT 85 U/L (12-78); BILIRUBIN,TOTAL 0.3 MG/DL (0.2-1.0); BLOOD UREA NITROGEN 14 MG/DL (7-18); CARBON DIOXIDE LEVEL 27 MEQ/L (21-32); CHLORIDE LEVEL 102 MEQ/L (98-107); CHOLESTEROL LEVEL 154 MG/DL (<200); CHOLESTEROL RISK RATIO 5.133 (<5); CREATININE FOR GFR 0.86 MG/DL (0.70-1.30); GLOMERULAR FILTRATION RATE > 60.0 (>56); GLUCOSE, FASTING 280 MG/DL (70-100); HDL CHOLESTEROL 30 MG/DL (>40); NON-HDL-C 124 MG/DL; POTASSIUM SERUM 4.4 MEQ/L (3.5-5.1); SODIUM LEVEL 136 MEQ/L (136-145); TOTAL PROTEIN 6.9 GM/DL (6.4-8.2); TRIGLYCERIDES LEVEL 643 MG/DL (<150)
[2020-06-05 14:14] LABS: MAU/CREAT RATIO 92.6 MCG/MG (0.0-30.0)
== END ==
LOC: M WUC 10:34
PROVIDERS: ATTEND Nurse Practitioner Family
DX: I10 Essential (primary) hypertension (principal); E78.2 Mixed hyperlipidemia; E11.65 Type 2 diabetes mellitus with hyperglycemia

== ENCOUNTER → 2020-11-02 | Outpatient (CLI) | payer MEDICARE, OTHER ==
[~2020-11-02] MED LIST changes: -LISI-538 PO; +LISI20TA33 PO
[2020-11-02 15:38] LABS: HEMOGLOBIN A1c 8.7 %
== END ==
LOC: M WUC 09:47
PROVIDERS: ATTEND Nurse Practitioner Family
DX: E11.65 Type 2 diabetes mellitus with hyperglycemia (principal)

== ENCOUNTER → 2020-11-02 | Outpatient (CLI) | payer MEDICARE, OTHER ==
--- NOTE | 2020-11-02 15:11 | REP ---
INDICATION: PERSONAL HISTORY OF NICOTINE DEPENDENCE. COMPARISON: Chest CT dated 05/26/[address] dated 12/02/2019. TECHNIQUE: The study is performed without IV contrast. The images are presented at lung windowing only. FINDINGS: There is chronic atelectasis versus scarring in the anterior segment of the left lower lobe, inferiorly in the lingula and in the right lower lobe, unchanged. There are no nodules or masses. There are no infiltrates or pleural effusions. IMPRESSION: Chronic areas of atelectasis versus scarring. No lung nodules or masses. Category 1 low-dose lung screening CT of the chest. The probability of malignancy is less than 1% Depending on risk factors consider annual follow-up close dose lung screening chest CT. <Electronically signed by Deion Mendosa > 11/02/20 [id number]
== END ==
LOC: M RAD 13:28
PROVIDERS: ATTEND Physician Assistant
DX: Z12.2 Encounter for screening for malignant neoplasm of respiratory organs (principal); J98.11 Atelectasis; Z87.891 Personal history of nicotine dependence; E11.65 Type 2 diabetes mellitus with hyperglycemia

== ENCOUNTER → 2021-04-05 | Outpatient (CLI) | payer MEDICARE, OTHER ==
[~2021-04-05] MED LIST changes: +OMEP40CA4 PO; -OMEP40CA97 PO
[2021-04-05 16:05] LABS: BASO # 0.1 10^3/uL (0.0-0.2); BASO % 0.9 % (0.0-1.0); EOS # 0.2 10^3/uL (0.0-0.5); EOS % 2.2 % (0.0-3.0); HEMATOCRIT 52.9 % (42.0-52.0); HEMOGLOBIN 17.8 g/dl (13.5-17.5); LYMPH # 2.2 10^3/uL (1.5-5.0); LYMPH % 21.4 % (24.0-44.0); MEAN CORPUSCULAR HEMOGLOBIN 30.2 pg (27.0-33.0); MEAN CORPUSCULAR HGB CONC 33.6 g/dl (32.0-36.5); MEAN CORPUSCULAR VOLUME 89.7 fl (80.0-96.0); MONO % 9.6 % (2.0-8.0); NEUTROPHILS # 6.7 10^3/uL (1.5-8.5); NEUTROPHILS % 64.8 % (36.0-66.0); PLATELET COUNT, AUTOMATED 189 10^3/uL (150-450); WHITE BLOOD COUNT 10.3 10^3/uL (4.0-10.0)
[2021-04-05 16:37] LABS: HEMOGLOBIN A1c 7.3 %
[2021-04-05 16:46] LABS: CREATININE, URINE 79.1 MG/DL; MALB URINE SIEMENS 20.1 MG/L; MAU/CREAT RATIO 25.4 MCG/MG (0.0-30.0)
[2021-04-05 16:51] LABS: ALBUMIN 4.4 GM/DL (3.2-5.2); ALT/SGPT 55 U/L (12-78); BILIRUBIN,TOTAL 0.6 MG/DL (0.2-1.0); BLOOD UREA NITROGEN 16 MG/DL (7-18); CALCIUM LEVEL 9.1 MG/DL (8.5-10.1); CARBON DIOXIDE LEVEL 27 MEQ/L (21-32); CHLORIDE LEVEL 102 MEQ/L (98-107); CHOLESTEROL LEVEL 154 MG/DL (<200); CHOLESTEROL RISK RATIO 4.967 (<5); CREATININE FOR GFR 0.86 MG/DL (0.70-1.30); GLOMERULAR FILTRATION RATE > 60.0 (>56); GLUCOSE, FASTING 151 MG/DL (70-100); HDL CHOLESTEROL 31 MG/DL (>40); LDL CHOLESTEROL 57 MG/DL (<100); NON-HDL-C 123 MG/DL; POTASSIUM SERUM 4.6 MEQ/L (3.5-5.1); SODIUM LEVEL 136 MEQ/L (136-145); TOTAL PROTEIN 7.3 GM/DL (6.4-8.2); TRIGLYCERIDES LEVEL 332 MG/DL (<150)
== END ==
LOC: M WUC 11:20
PROVIDERS: ATTEND Nurse Practitioner Family
DX: E78.2 Mixed hyperlipidemia (principal); I10 Essential (primary) hypertension; E11.65 Type 2 diabetes mellitus with hyperglycemia; Z23 Encounter for immunization
CPT/HCPCS: 36415; 80053; 80061; 82043; 83036; 85025; 90471; 90750; G0463

== ENCOUNTER → 2021-07-07 | Outpatient (CLI) | payer MEDICARE, OTHER | LOC: M WUC 09:15 | PROVIDERS: ATTEND Nurse Practitioner Family | DX: E11.65 Type 2 diabetes mellitus with hyperglycemia (principal) ==

== ENCOUNTER → 2022-01-03 | Outpatient (CLI) | payer MEDICARE, OTHER | LOC: M WUC 10:13 | PROVIDERS: ATTEND Nurse Practitioner Family | DX: E11.9 Type 2 diabetes mellitus without complications (principal) ==

== ENCOUNTER → 2022-08-16 | Outpatient (CLI) | payer MEDICARE, OTHER ==
[2022-08-16 13:49] LABS: HEMOGLOBIN A1c 6.4 % (4.0-6.0)
== END ==
LOC: M WUC 09:33
PROVIDERS: ATTEND Student in an Organized Health Care Education/Training Program
DX: E11.65 Type 2 diabetes mellitus with hyperglycemia (principal)

== ENCOUNTER → 2023-02-15 | Outpatient (CLI) | payer MEDICARE, OTHER | LOC: M RAD 10:34 | PROVIDERS: ATTEND Physician Assistant | DX: Z87.891 Personal history of nicotine dependence (principal) ==

== ENCOUNTER → 2023-06-06 | Outpatient (CLI) | payer MEDICARE ==
[2023-06-06 13:05] LABS: BLOOD UREA NITROGEN 14 MG/DL (9-23); CALCIUM LEVEL 10.2 MG/DL (8.5-10.1); CARBON DIOXIDE LEVEL 29 MMOL/L (20-31); CHLORIDE LEVEL 105 MMOL/L (98-107); CREATININE FOR GFR 0.76 MG/DL (0.70-1.30); GLOMERULAR FILTRATION RATE > 60.0 (>56); GLUCOSE, FASTING 133 MG/DL (60-100); POTASSIUM SERUM 5.4 MMOL/L (3.5-5.1); SODIUM LEVEL 140 MMOL/L (136-145)
== END ==
LOC: M LAB 12:02
PROVIDERS: ATTEND Psychiatry & Neurology Neurology
DX: G43.909 Migraine, unspecified, not intractable, without status migrainosus (principal)

== ENCOUNTER → 2023-06-06 | Outpatient (CLI) | payer MEDICARE ==
[2023-06-06 13:04] LABS: CREATININE, URINE 56.9 MG/DL
[2023-06-06 13:05] LABS: ALBUMIN 4.2 G/DL (3.2-5.2); ALKALINE PHOSPHATASE 113 U/L (46-116); ALT/SGPT 38 U/L (7.0-40); AST/SGOT 16 U/L (<34); BILIRUBIN,TOTAL 0.5 MG/DL (0.3-1.2); BLOOD UREA NITROGEN 13 MG/DL (9-23); CALCIUM LEVEL 9.7 MG/DL (8.5-10.1); CARBON DIOXIDE LEVEL 29 MMOL/L (20-31); CHLORIDE LEVEL 106 MMOL/L (98-107); CHOLESTEROL LEVEL 128 MG/DL (<200); CHOLESTEROL RISK RATIO 3.79 (<5); CREATININE FOR GFR 0.75 MG/DL (0.70-1.30); GLOMERULAR FILTRATION RATE > 60.0 (>56); GLUCOSE, FASTING 136 MG/DL (60-100); HDL CHOLESTEROL 33.7 MG/DL (>40); LDL CHOLESTEROL 59.9 MG/DL (<100); NON-HDL-C 94.3 MG/DL; POTASSIUM SERUM 5.2 MMOL/L (3.5-5.1); SODIUM LEVEL 142 MMOL/L (136-145); TRIGLYCERIDES LEVEL 172 MG/DL (<150)
[2023-06-06 13:09] LABS: HEMOGLOBIN A1c 6.1 % (4.0-6.0)
[2023-06-06 13:22] LABS: BASO # 0.1 10^3/uL (0.0-0.2); EOS # 0.3 10^3/uL (0.0-0.5); EOS % 2.7 % (0.0-3.0); HEMATOCRIT 52.4 % (42.0-52.0); HEMOGLOBIN 17.6 g/dl (13.5-17.5); LYMPH # 1.7 10^3/uL (1.5-5.0); LYMPH % 17.9 % (24.0-44.0); MEAN CORPUSCULAR HEMOGLOBIN 30.3 pg (27.0-33.0); MEAN CORPUSCULAR HGB CONC 33.6 g/dl (32.0-36.5); MEAN CORPUSCULAR VOLUME 90.2 fl (80.0-96.0); MONO # 0.7 10^3/uL (0.0-0.8); MONO % 7.7 % (2.0-8.0); NEUTROPHILS # 6.5 10^3/uL (1.5-8.5); NEUTROPHILS % 69.5 % (36.0-66.0); PLATELET COUNT, AUTOMATED 202 10^3/uL (150-450); RED BLOOD COUNT 5.81 10^6/uL (4.30-6.10); WHITE BLOOD COUNT 9.4 10^3/uL (4.0-10.0)
== END ==
LOC: M LAB 11:58
PROVIDERS: ATTEND Student in an Organized Health Care Education/Training Program
DX: E11.65 Type 2 diabetes mellitus with hyperglycemia (principal)

== ENCOUNTER → 2023-06-06 | Outpatient (CLI) | payer MEDICARE ==
[~2023-06-06] MED LIST changes: +ISOVUE-370 76% 100ML VIAL As Ordered ONE
== END ==
LOC: M RAD 13:59
PROVIDERS: ATTEND Psychiatry & Neurology Neurology
DX: G90.2 Horner's syndrome (principal); R55 Syncope and collapse; R05.4 Cough syncope; Z79.899 Other long term (current) drug therapy; G43.909 Migraine, unspecified, not intractable, without status migrainosus; E11.65 Type 2 diabetes mellitus with hyperglycemia
CPT/HCPCS: 36415; 70498; 80048; 80053; 80061; 82043; 83036; 85025; Q9967

== ENCOUNTER → 2023-11-09 | Outpatient (CLI) | payer MEDICARE ==
[~2023-11-09] MED LIST changes: -ISOVUE-370 76% 100ML VIAL As Ordered ONE
== END ==
LOC: M PLARAD 13:05
PROVIDERS: ATTEND Psychiatry & Neurology Neurology
DX: I65.23 Occlusion and stenosis of bilateral carotid arteries (principal)

== ENCOUNTER → 2024-04-04 | Outpatient (CLI) | payer MEDICARE | LOC: M RAD 09:32 | PROVIDERS: ATTEND Physician Assistant | DX: Z87.891 Personal history of nicotine dependence (principal) ==

== ENCOUNTER → 2024-05-24 | Outpatient (REF) | payer MEDICARE ==
[2024-05-24 18:47] LABS: HEMOGLOBIN A1c 7.5 % (4.0-6.0)
[2024-05-24 19:03] LABS: FOLATE > 24.0 NG/ML (>5.4)
[2024-05-24 19:04] LABS: TOTAL 25(OH) VITAMIN D 34.6 NG/ML (20.0-100.0); VITAMIN B12 LEVEL 501 PG/ML (211-911)
[2024-05-24 19:05] LABS: THYROID STIMULATING HORMONE 1.401 uIU/ML (0.55-4.78)
[2024-05-24 19:22] LABS: ALBUMIN 4.2 G/DL (3.2-5.2); ALKALINE PHOSPHATASE 142 U/L (46-116); ALT/SGPT 44 U/L (7.0-40); AST/SGOT 15 U/L (<34); BILIRUBIN,TOTAL 0.5 MG/DL (0.3-1.2); BLOOD UREA NITROGEN 15 MG/DL (9-23); CALCIUM LEVEL 10.1 MG/DL (8.5-10.1); CARBON DIOXIDE LEVEL 27 MMOL/L (20-31); CHLORIDE LEVEL 105 MMOL/L (98-107); CHOLESTEROL LEVEL 111 MG/DL (<200); CHOLESTEROL RISK RATIO 3.96 (<5); CREATININE FOR GFR 0.72 MG/DL (0.70-1.30); GLOMERULAR FILTRATION RATE > 60.0 (>56); GLUCOSE, FASTING 184 MG/DL (60-100); POTASSIUM SERUM 4.9 MMOL/L (3.5-5.1); SODIUM LEVEL 140 MMOL/L (136-145); TOTAL PROTEIN 7.1 G/DL (5.7-8.2); TRIGLYCERIDES LEVEL 300 MG/DL (<150)
== END ==
LOC: M SFHCLERA 11:32
PROVIDERS: ATTEND Physician Assistant
DX: E78.2 Mixed hyperlipidemia (principal); E11.42 Type 2 diabetes mellitus with diabetic polyneuropathy; E55.9 Vitamin D deficiency, unspecified

== ENCOUNTER 2024-09-05 09:39 | Day surgery (SDC) | payer MEDICARE ==
[~2024-09-05] VITALS: Ht 182.9 cm; Wt 98.9 kg
[~2024-09-05 09:39] MED LIST changes: -ADV100INH INH; +ADVA1AER8 INH; +AMIT25TA19 PO; +AMLO1TAB24 PO; +ATOR80TA59 PO; +B-12100010 PO; +BAYE81TA10 PO; +CITA40TA7 PO; +EZET10TA21 PO; +JARD1TAB3 PO; +LISI40TA4 PO; +METF-838 PO; +NS 250 ML IV ONE; +OMEP40CA5 PO; +THERTAB52 PO; +TOPI-21 PO
[2024-09-05 11:05] VITALS: BP 133/86; O2SAT 95
== END 2024-09-05 11:13 | disposition home or self-care (01) ==
LOC: M OPP 09:39
PROVIDERS: ATTEND Surgery
DX: K30 Functional dyspepsia (principal); K44.9 Diaphragmatic hernia without obstruction or gangrene; K31.89 Other diseases of stomach and duodenum; I10 Essential (primary) hypertension; E78.5 Hyperlipidemia, unspecified; E11.9 Type 2 diabetes mellitus without complications; F41.9 Anxiety disorder, unspecified; J45.909 Unspecified asthma, uncomplicated; J44.9 Chronic obstructive pulmonary disease, unspecified; G47.33 Obstructive sleep apnea (adult) (pediatric); Z79.84 Long term (current) use of oral hypoglycemic drugs; Z79.899 Other long term (current) drug therapy

== ENCOUNTER → 2024-10-02 | Outpatient (CLI) | payer MEDICARE ==
[~2024-10-02] MED LIST changes: -NS 250 ML IV ONE
[2024-10-02 13:52] LABS: BLOOD UREA NITROGEN 17 MG/DL (9-23); CREATININE FOR GFR 0.81 MG/DL (0.70-1.30); GLOMERULAR FILTRATION RATE > 60.0 (>49)
== END ==
LOC: M PLALAB 10:40
PROVIDERS: ATTEND Physician Assistant
DX: R10.12 Left upper quadrant pain (principal)

== ENCOUNTER → 2024-10-07 | Outpatient (CLI) | payer MEDICARE ==
[~2024-10-07] MED LIST changes: +ISOVUE-370 76% 100ML VIAL ONE
== END ==
LOC: M PLAIMG 10:20
PROVIDERS: ATTEND Physician Assistant
DX: K42.9 Umbilical hernia without obstruction or gangrene (principal); K40.20 Bilateral inguinal hernia, without obstruction or gangrene, not specified as recurrent
CPT/HCPCS: 74178; Q9967

== ENCOUNTER → 2025-04-10 | Outpatient (CLI) | payer MEDICARE ==
[~2025-04-10] MED LIST changes: -ISOVUE-370 76% 100ML VIAL ONE; +LISI40TA10 PO; -LISI40TA4 PO
== END ==
LOC: M RAD 16:16
PROVIDERS: ATTEND Physician Assistant
DX: F17.200 Nicotine dependence, unspecified, uncomplicated (principal)

== ENCOUNTER → 2025-04-28 | Outpatient (CLI) | payer MEDICARE ==
[~2025-04-28] MED LIST changes: -EZET10TA21 PO; +EZET10TA57 PO
[2025-04-28 13:05] LABS: ALT/SGPT 34 U/L (7.0-40); AST/SGOT 15 U/L (<34); CALCIUM LEVEL 9.2 MG/DL (8.3-10.6); CARBON DIOXIDE LEVEL 28 MMOL/L (20-31); CHLORIDE LEVEL 99 MMOL/L (98-107); CHOLESTEROL LEVEL 199 MG/DL (<200); CHOLESTEROL RISK RATIO 5.19 (<5); CREATININE FOR GFR 0.78 MG/DL (0.70-1.30); GLOMERULAR FILTRATION RATE > 90.0 (>49); NON-HDL-C 160.7 MG/DL; POTASSIUM SERUM 4.6 MMOL/L (3.5-5.1); SODIUM LEVEL 135 MMOL/L (136-145); TRIGLYCERIDES LEVEL 665 MG/DL (<150)
[2025-04-28 13:06] LABS: BASO # 0.0 10^3/uL (0.0-0.2); BASO % 0.2 % (0.0-1.0); EOS # 0.2 10^3/uL (0.0-0.5); EOS % 1.4 % (0.0-3.0); LYMPH # 3.0 10^3/uL (1.5-5.0); LYMPH % 18.2 % (24.0-44.0); MONO # 1.3 10^3/uL (0.0-0.8); MONO % 7.5 % (2.0-8.0); NEUTROPHILS # 11.5 10^3/uL (1.5-8.5); NEUTROPHILS % 69.5 % (36.0-66.0); PLATELET COUNT, AUTOMATED 297 10^3/uL (150-450)
[2025-04-28 13:23] LABS: ESTIMATED AVERAGE GLUCOSE 206.0 MG/DL (60-110)
== END ==
LOC: M WUC 09:48
DX: Z00.00 Encounter for general adult medical examination without abnormal findings (principal); E78.00 Pure hypercholesterolemia, unspecified

== ENCOUNTER → 2025-07-04 | Outpatient (CLI) | payer MEDICARE ==
[2025-07-04 16:49] LABS: CHOLESTEROL LEVEL 149.0 MG/DL (<200); CHOLESTEROL RISK RATIO 4.88 (<5); LDL CHOLESTEROL 57.1 MG/DL (<100); NON-HDL-C 118.5 MG/DL; TRIGLYCERIDES LEVEL 307.0 MG/DL (<150)
== END ==
LOC: M WUC 10:57
DX: E78.1 Pure hyperglyceridemia (principal)